=== PATIENT | male | born 1950 | race Caucasian/White ===

== ENCOUNTER 2023-05-16 16:35 | Inpatient (IN) | payer OTHER, MEDICARE, SELFPAY ==
--- NOTE | ~2023-05-16 | CT_ITS ---
EXAMINATION: CT ABDOMEN AND PELVIS WITH CONTRAST CLINICAL INFORMATION: Pain COMPARISON: None available. TECHNIQUE: Multidetector volumetric images were obtained from the superior aspect of the liver through the pubic symphysis following administration 85 mL of Omnipaque 350 intravenous contrast. Sagittal and coronal reformatted images were obtained on the technologist's workstation. Oral contrast: Yes This CT examination was performed using dose optimization techniques as appropriate, variously including the following: *Automated exposure control *Adjustment of mA and/or kV according to patient size (this includes techniques or standardized protocols for targeted exams where dose is matched to indication/reason for exam; i.e. extremities or head) *Use of iterative reconstruction technique DLP: 683 mGy-cm FINDINGS: LUNG BASES: The visualized lung bases are unremarkable. LIVER, GALLBLADDER, AND BILIARY TREE: The liver is low and heterogeneous in attenuation suggestive of fatty infiltration with areas of focal fatty sparing. There is a large 2 x 3 cm gallstone in the gallbladder. Gallbladder wall appears normal. The bile ducts are normal in caliber. PANCREAS: There is fat stranding surrounding the pancreas and small amount of fluid suggestive of acute pancreatitis. SPLEEN: Unremarkable. ADRENAL GLANDS: Unremarkable. KIDNEYS AND URETERS: The kidneys are normal in size, shape, and attenuation. No hydronephrosis, hydroureter, or calculi seen. No perinephric stranding. BLADDER: Unremarkable. GASTROINTESTINAL TRACT: There is a fat stranding adjacent to the distal left colon or proximal sigmoid colon. No adjacent wall thickening is seen. Findings are questionable fat necrosis or epiploic appendicitis read The small and large bowel are otherwise unremarkable. The appendix is unremarkable. ABDOMINAL WALL: Small umbilical hernia containing fat. Small left inguinal hernia containing fat and knuckle of left colon. No evidence of obstruction. Low-attenuation soft tissue with central calcification high in the right inguinal canal. This measures 2 x 2.5 cm. Uncertain etiology. Correlation with physical exam to exclude undescended testicle recommended. LYMPH NODES: Normal. VASCULAR: Severe atherosclerotic disease. No PELVIC VISCERA: Unremarkable. OSSEOUS STRUCTURES: Unremarkable. CT/CT abdomen pelvis w IV con IMPRESSION: Large 2 x 3 cm gallstone. Fatty liver. Fat stranding and fluid surrounding the pancreas suggestive of acute pancreatitis. Question epiploic appendagitis vs fat necrosis adjacent to the distal left colon. No evidence of active colitis or diverticulitis. Partially calcified low-attenuation soft tissue mass high in the right inguinal canal. Clinically correlate to exclude undescended testicle. Small left inguinal hernia containing fat and knuckle of left colon. No evidence of obstruction. Fleischner guidelines were followed.
--- NOTE | ~2023-05-16 | CT_ITS ---
EXAMINATION: CT ABDOMEN AND PELVIS WITH CONTRAST CLINICAL INFORMATION: Worsening epigastric pain. Pancreatitis. COMPARISON: 05/16/2023. TECHNIQUE: Multidetector volumetric images were obtained from the superior aspect of the liver through the pubic symphysis following administration 85 mL of Omnipaque 350 intravenous contrast. Sagittal and coronal reformatted images were obtained on the technologist's workstation. Oral contrast: No This CT examination was performed using dose optimization techniques as appropriate, variously including the following: *Automated exposure control *Adjustment of mA and/or kV according to patient size (this includes techniques or standardized protocols for targeted exams where dose is matched to indication/reason for exam; i.e. extremities or head) *Use of iterative reconstruction technique DLP: 665 mGy-cm FINDINGS: LUNG BASES: Right basilar fibrotic streaks and/or atelectasis. No pleural effusion. Are normal in size. No pericardial effusion. Coronary arterial calcification. LIVER, GALLBLADDER, AND BILIARY TREE: Suspect mild fatty infiltration of the liver. The liver appears unremarkable in size and shape. No focal hepatic lesion or biliary ductal dilatation is appreciated. 3.2 cm gallstone. No evidence of gallbladder wall thickening or pericholecystic inflammatory change. PANCREAS: Induration of peripancreatic fat, similar compared with 4 days prior. Homogeneous enhancement of the pancreatic parenchyma. No collection identified. SPLEEN: Unremarkable ADRENAL GLANDS: Unremarkable KIDNEYS AND URETERS: The kidneys appear unremarkable in size, shape, and attenuation. No hydronephrosis, hydroureter, or calculi seen. BLADDER: Unremarkable GASTROINTESTINAL TRACT: The small and large bowel appear unremarkable. No diverticulosis. Normal-appearing distal ileum and vermiform appendix. ABDOMINAL WALL: No significant radiographic change in Low-attenuation soft tissue with central calcification high in the right inguinal canal... [measuring] 2 x 2.[address] scan from 4 days prior. Small left inguinal hernia containing fat. LYMPH NODES: No evidence of adenopathy by size criteria. VASCULAR: Aortoiliac atherosclerosis. PELVIC VISCERA: Unremarkable OSSEOUS STRUCTURES: Unremarkable CT/CT abdomen pelvis w IV con IMPRESSION: Acute pancreatitis. No significant radiographic change compared with 4 days prior, as above.
--- NOTE | ~2023-05-16 | US_ITS ---
EXAMINATION: US ABDOMEN LIMITED CLINICAL INFORMATION: Right upper quadrant pain. COMPARISON: CT from the same day TECHNIQUE: Real-time imaging of the right upper quadrant abdominal viscera. Exam is limited due to bowel gas FINDINGS: PANCREAS: Not seen LIVER: Liver echotexture is increased. No focal hepatic lesion. There is no intrahepatic biliary duct dilatation seen. GALLBLADDER: There is a large gallstone in the gallbladder measuring 2.2 cm. Gallbladder wall does not appear thickened. There is no pericholecystic fluid. COMMON BILE DUCT: Normal in caliber measuring 0.4 cm in diameter. RIGHT KIDNEY: Normal. No hydronephrosis. No renal calculi or focal parenchymal lesions. The kidney measures 11.6 cm in maximum dimension. FREE FLUID: None. US/US abdomen limited IMPRESSION: Limited exam. Large gallstone in the gallbladder. Echogenic liver probably representing fatty infiltration.
--- NOTE | ~2023-05-16 | XR_ITS ---
EXAMINATION: XR FOOT, LEFT CLINICAL INFORMATION: Left heel pain, no trauma COMPARISON: None available. TECHNIQUE: AP, lateral, and oblique portable views of the left foot. FINDINGS: The bones are intact. No fracture. Alignment is anatomic. Joint spaces are maintained. Small posterior plantar calcaneal spur is seen. XR/XR foot LT 2V IMPRESSION: Small posterior plantar calcaneal spur.
--- NOTE | ~2023-05-16 | MR_ITS ---
EXAMINATION: MR ABDOMEN WITHOUT CONTRAST CLINICAL INFORMATION: Gallstone pancreatitis, possible CBD stone COMPARISON: Abdominal ultrasound and CT abdomen pelvis performed 05/16/2023 TECHNIQUE: MR abdomen is performed without gadolinium contrast. Heavily T2-weighted noncontrast MRCP sequences were obtained. FINDINGS: Technically limited exam with portions of the abdomen excluded from the [id number] on multiple sequences and wraparound artifact limiting assessment. LUNG BASES: Unremarkable. ABDOMINAL AND PELVIC WALL: Unremarkable. LIVER AND BILIARY TREE: No intra or extrahepatic biliary duct dilatation or intraluminal defect to suggest choledocholithiasis. Mild loss of signal on opposed imaging suggesting hepatic steatosis. GALLBLADDER: Cholelithiasis without evidence of acute cholecystitis. PANCREAS: Peripancreatic free fluid and inflammatory fat stranding compatible with history of acute pancreatitis. Lack of intravenous contrast limits evaluation for pancreatic enhancement. SPLEEN: Unremarkable. ADRENAL GLANDS: Unremarkable. KIDNEYS AND URETERS: Unremarkable. GASTROINTESTINAL TRACT: Unremarkable. VASCULAR: Unremarkable. LYMPH NODES/PERITONEUM: No lymphadenopathy. FREE FLUID: None. OSSEOUS STRUCTURES: Unremarkable. MR/MR MRCP IMPRESSION: 1. No intra or extrahepatic biliary duct dilatation or intraluminal defect to suggest choledocholithiasis. 2. Cholelithiasis without evidence of acute cholecystitis. 3. Peripancreatic free fluid and inflammatory fat stranding compatible with history of acute pancreatitis, better evaluated on prior postcontrast CT. Lack of intravenous contrast limits evaluation for pancreatic enhancement. 4. Mild hepatic steatosis.
[2023-05-16 16:44] VITALS: BP 183/104; PULSE 80; O2SAT 100; BMI 32.0
[2023-05-16 16:47] VITALS: BP 175/93; PULSE 73; RESP 18; TEMP 36.9; O2SAT 100
--- NOTE | 2023-05-16 17:00 | PC.NURSE ---
a&ox3, vss aside from being hypertensive at this time. pt comes in today d/t 6/10 epigastric pain. sx began this afternoon when pt was working on computer from home. pt states that burning sensation began out of nowhere. pt also c/o n/v denies diarrhea. pt c/o no sob/urinary sx. pt states pain level has decreased some since ems transportation. 20gIV placed in left hand by EMS. no medications given en route. pt currently resting in no apparent distress w/ bedside. respirations even and unlabored. call tian placed within reach.
--- NOTE | 2023-05-16 17:24 | ECG_ITS ---
Test Reason : ABD PAIN Blood Pressure : / mmHG Vent. Rate : 069 BPM Atrial Rate : 069 BPM P-R Int : 166 ms QRS Dur : 090 ms QT Int : 384 ms P-R-T Axes : 012 -21 -11 degrees QTc Int : 411 ms Normal sinus rhythm Inferior infarct , age undetermined Abnormal ECG No previous ECGs available Referred By: Kiel Diaz Electronically Signed By:MONSE OBANDO MD
--- NOTE | 2023-05-16 17:30 | ED_ITS ---
HPI - General Adult General Chief complaint: Abdominal Pain Stated complaint: ABD PAIN XFEW HRS Time Seen by Provider: 05/16/23 16:44 Source: patient, family and RN notes reviewed Mode of arrival: EMS Limitations: no limitations History of Present Illness HPI narrative: 73 year old male with no PMH presents for chest pain beginning this morning. He states the pain began shortly after taking vitamins and is described as burning like a hot coal on my chest. He reports taking Pepto bismol and the pain subsided for a couple of hours before returning. He states the pain was severe and resulted in him calling EMS. He denies shortness of breath, vomiting, syncope, radiation of pain to the back or arms. He denies a cardiac history. He reports his mother of a [place] in her 50s and there is a familial history of gallbladder disease. Patient denies having these symptoms before. Related Data Home Medications Medication Instructions Recorded Confirmed Mushroom Complex 1 tab PO DAILY 05/16/23 05/16/23 [place] 3 1 cap PO DAILY 05/16/23 05/16/23 ascorbic acid (vitamin C) 500 mg 500 mg PO DAILY 05/16/23 05/16/23 tablet biotin 1 tab PO DAILY 05/16/23 05/16/23 cholecalciferol (vitamin D3) 25 25 mcg PO DAILY 05/16/23 05/16/23 mcg (1,000 unit) tablet chromium 1 tab PO DAILY 05/16/23 05/16/23 coenzyme Q10 400 mg capsule (Co 400 mg PO DAILY 05/16/23 05/16/23 Q-10) multivitamin 1 tab PO DAILY 05/16/23 05/16/23 psyllium seed (sugar) oral powder 1 tbsp PO DAILY 05/16/23 05/16/23 vitamin B complex 1 tab PO DAILY 05/16/23 05/16/23 Allergies Allergy/AdvReac Type Severity Reaction Status Date / Time No Known Allergies Allergy Verified 05/16/23 16:44 Review of Systems 2 Constitutional: Constitutional: Denies chills, Denies fever(s) and Denies headache(s) ENT: Denies headache(s) Cardiovascular: Cardiovascular: Reports chest pain, Reports Epigastric Pain, Denies syncope, Denies lightheadedness, Denies radiating jaw, neck or arm pain, Denies palpitations and Denies dyspnea Respiratory: Respiratory: Denies cough and Denies dyspnea Gastrointestinal: Gastrointestinal: Reports abdominal pain, Denies diarrhea, Denies nausea and Denies vomiting Genitourinary: Genitourinary: Denies dysuria and Denies urinary urgency Neurologic: Denies syncope and Denies headache(s) Endocrine: Endocrine: Denies palpitations [facility] Social History Social History Alcohol intake: never Smoked in Last 30 Days: No Use of substances other than those prescribed or required for medical reasons: No Advance Directives: Yes Advance Directives Information Provided: No Advance Directives on File: No Physical Exam ED Vital Signs: Vital Signs - 24 hr 05/16/23 16:47 05/16/23 18:00 Temperature 98.5 F 98.7 F Pulse Rate 73 71 Respiratory Rate 18 16 Blood Pressure 175/93 H 154/76 H Pulse Oximetry 100 98 Oxygen Delivery Method Room Air Room Air BMI result Body Mass Index 32.0 Const General: healthy appearing and no acute distress Orientation/consciousness: patient oriented x3 Limitations: no limitations HENMT Head: Yes normocephalic and Yes atraumatic Eyes Conjunctivae: conjunctivae normal Sclerae: sclerae normal Corneas: corneas normal Chest Chest palpation & inspection: normal inspection of the chest and normal palpation of entire chest wall Resp Effort & Inspection: normal respiratory effort Auscultation: clear to auscultation bilaterally Cardio Rate: regular rate Rhythm: regular rhythm GI Inspection: Yes distended Palpation (GI): Soft to palpation, not firm, Tenderness to palpation present (GI) in the epigastrum and with rebound tenderness; not in the RUQ, Guarding due to palpation present (GI) other (epigastric) and not rigid Skin General skin exam: no rashes or lesions noted Neuro General: patient oriented x3 Course Reevaluation(s) Reevaluation #1: Patient's lipase noted to be elevated to over 3000. This is consistent the patient's presentation of epigastric abdominal pain. The patient's T bili is also elevated 2.1. States gallstone pancreatitis most likely diagnosis. I ordered an ultrasound to evaluate for gallstones/cholecystitis. Iritis CT scan of the abdomen pelvis to evaluate the pancreas and rule out pseudocyst versus abscess is the patient has never had pancreatitis before. The patient does endorse occasionally drinking and wine approximately 3 times per week. He reports not having had a drink since Sunday, 2 days ago. Time: 18:52 Reevaluation #2: Discussed with general surgery, Dr. Emanuel who will admit the patient to his service Time: 20:38 Medications Administered Discontinued Medications Generic Name Dose Route Start Last Admin Trade Name Carin PRN Reason Stop Dose Admin Al Hydroxide/Mg Hydroxide 30 ml 05/16/23 17:38 05/16/23 17:58 Magnesium Hydrox/Alum Hydrox 30 Ml Oral.Susp PO 05/16/23 17:39 30 ml ONCE ONE Administration Sodium Chloride 1,000 mls @ 999 mls/hr 05/16/23 19:00 05/16/23 20:17 Ns IV 05/16/23 20:00 Infused .Q1H1M BARBARA Infusion Iohexol 100 ml 05/16/23 19:02 05/16/23 19:02 Iohexol 350 Mg/Ml 100 Ml Infus..Btl IV 05/16/23 19:03 85 ml ONCE ONE Administration Lidocaine HCl 15 ml 05/16/23 17:38 05/16/23 17:58 Lidocaine Hcl Viscous 2 % 15 Ml Solution MUCOUS MEM 05/16/23 17:39 15 ml ONCE ONE Administration Morphine Sulfate 4 mg 05/16/23 18:50 05/16/23 19:05 Morphine Sulfate 4 Mg/Ml Cartridge IVPUSH 05/16/23 18:51 4 mg ONCE ONE Administration Protocol Ondansetron HCl 4 mg 05/16/23 17:38 05/16/23 17:58 Ondansetron Odt 4 Mg Tab.Rapdis TRANSLINGU 05/16/23 17:39 4 mg ONCE ONE Administration Ondansetron HCl 4 mg 05/16/23 18:50 05/16/23 19:05 Ondansetron Hcl 4 Mg/2 Ml Vial IVPUSH 05/16/23 18:51 4 mg ONCE ONE Administration Medical Decision Making Medical Decision Making MDM Narrative: 73-year-old male who denies any past medical history presents for evaluation of epigastric abdominal pain as well as chest pain. He is noted to be hypertensive at 175/93. Plan to start with EKG, labs. Will treat with GI cocktail to see if that resolves his pain. The patient is nontender the right upper quadrant, so it is felt to be less likely biliary colic or biliary disease. Further workup will be dictated by EKG and lab results. Differential Diagnosis Differential Diagnoses: The differential diagnosis associated with the presentation includes peptic ulcer disease GERD ACS cholecystitis aortic dissection pancreatitis Admission/Observation Consideration of admission/observation: Escalation of care including admission/observation considered Consult Healthcare Provider Management of the patient was discussed with: Neonatal Intensive Care Nurse (General surgery who will admit the patient) Lab Data MDM Lab Attestation statement: I reviewed the patient's lab results. (No leukocytosis, no anemia, normal platelet count. No significant electrolyte abnormalities. Normal renal function.) Patient's T bili is elevated to 2.1, AST and ALT are slightly elevated to 141 and 168 respectively. Of note, the patient's lipase is greater than 3000. 05/16/23 17:59 05/16/23 17:59 Labs: Lab Results 05/16/23 05/16/23 Range/Units 17:59 18:18 WBC 9.0 (4.8-10.8) X10*3/uL RBC 5.12 (4.60-5.80) X10*6/uL Hgb 16.5 (14.0-18.0) g/dl Hct 47.3 (42.0-52.0) % MCV 92.4 (80.0-98.0) fL MCH 32.2 (27.0-33.0) pg MCHC 34.9 (31.0-36.0) g/dl RDW 12.2 (11.0-16.0) % Plt Count 186 (160-400) X10*3/uL MPV 9.9 (9.4-12.4) fL Immature Gran % (Auto) 0.3 (0.0-0.4) % Neut % (Auto) 80.5 H (45-73) % Lymph % (Auto) 11.8 L (20-40) % [place] % (Auto) 6.6 (2-11) % Eos % (Auto) 0.4 (0-4) % Baso % (Auto) 0.4 (0-2) % Lymph # (Auto) 1.1 L (1.2-4.9) X10*3/uL [place] # (Auto) 0.6 (0.1-1.2) X10*3/uL Eos # (Auto) 0.0 (0.0-0.4) X10*3/uL Baso # (Auto) 0.0 (0.0-0.2) X10*3/uL Abs Immat Gran (auto) 0.03 (0.00-0.03) X10*3/uL Absolute Neuts (auto) 7.2 (2.0-8.3) x10*3/uL Absolute Nucleated RBC 0.000 (0.0-0.012) X10*3/uL Nucleated RBC % (auto) 0.0 (0.0-0.2) /100WBC PT 11.9 (11.1-13.3) SEC INR 1.0 (0.9-1.1) APTT 29.8 (26.0-36.4) SEC Sodium 141 (135-145) mmol/L Potassium 4.3 (3.3-5.1) mmol/L Chloride 109 H (96-108) mmol/L Carbon Dioxide 27 (22-29) mmol/L Anion Gap 9 L (12-20) BUN 14 (9-16) mg/dL Creatinine 0.86 (0.5-1.4) mg/dL Estim Creat Clear Calc 82.6 Estimated GFR > 60 Random Glucose 108 (60-115) mg/dL Calcium 9.5 (8.4-10.2) mg/dL Total Bilirubin 2.1 H (0.0-1.0) mg/dL AST 141 H (5-37) U/L ALT 168 H (0-40) U/L Alkaline Phosphatase 60 (39-117) U/L Troponin I High Sens < 2.7 (<3.5-35.0) ng/L Total Protein 7.0 (6.5-8.0) g/dL Albumin 4.1 (3.5-5.0) g/dL Lipase > 3000 H (8-78) U/L Urine Color Yellow Urine Appearance Clear Urine pH 6.5 (5.0-9.0) Ur Specific [place] <= 1.005 (1.005-1.025) Urine Protein Negative (Neg-Trace) mg/dL Urine Glucose (UA) Negative (Negative) mg/dL Urine Ketones Negative (Negative) mg/dL Urine Blood Negative (Negative) Urine Nitrite Negative (Negative) Ur Leukocyte Esterase Negative (Negative) Discharge Plan Discharge Clinical Impression: Acute gallstone pancreatitis Patient Disposition: Admitted As Inpatient
[2023-05-16] MEDS: Ondansetron ODT 4 MG TAB.RAPDIS TRANSLINGU (17:58)
[2023-05-16] MEDS: Lidocaine HCl Viscous 2 % 15 ML SOLUTION MUCOUS MEM (17:58)
[2023-05-16] MEDS: Magnesium Hydrox/Alum Hydrox 30 ML ORAL.SUSP PO (17:58)
[2023-05-16 18:00] VITALS: BP 154/76; PULSE 71; RESP 16; TEMP 37.1; O2SAT 98
--- NOTE | 2023-05-16 18:00 | PC.NURSE ---
vss and up to date at this time. pt verbalizing pain has decreased to a 4/10 at this time. medication administered per provider order. tech bedside obtaining labs. bedside. respirations remain even and unlabored. call tian placed within reach.
--- NOTE | 2023-05-16 18:02 | MHC.EDTECH ---
This pct just assumed care of pt ,vitals taken ,blood drawn and sent to lab ,ekg taken and was read by Provider Sonu .
[2023-05-16 18:04] LABS: MANUAL DIFF FLAG NO
[2023-05-16 18:10] LABS: Basophils Percent Auto 0.4 % (0-2); Eosinophils Percent Auto 0.4 % (0-4); Hematocrit 47.3 % (42.0-52.0); Hemoglobin 16.5 g/dl (14.0-18.0); Imm Gran Abs Auto 0.03 X10*3/uL (0.00-0.03); Imm Gran Pct Auto 0.3 % (0.0-0.4); Lymphocytes Absolute Auto 1.1 X10*3/uL (1.2-4.9); Lymphocytes Percent Auto 11.8 % (20-40); Mean Corpuscular HGB Conc 34.9 g/dl (31.0-36.0); Mean Corpuscular Hemoglobin 32.2 pg (27.0-33.0); Mean Corpuscular Volume 92.4 fL (80.0-98.0); Mean Platelet Volume 9.9 fL (9.4-12.4); Monocytes Absolute Auto 0.6 X10*3/uL (0.1-1.2); Monocytes Percent Auto 6.6 % (2-11); Neutrophils Absolute Auto 7.2 x10*3/uL (2.0-8.3); Neutrophils Percent Auto 80.5 % (45-73); Platelet Count 186 X10*3/uL (160-400); Red Blood Count 5.12 X10*6/uL (4.60-5.80); Red Cell Distribution Width 12.2 % (11.0-16.0)
[2023-05-16 18:15] LABS: Prothrombin Time 11.9 SEC (11.1-13.3)
[2023-05-16 18:18] LABS: Partial Thromboplastin Time 29.8 SEC (26.0-36.4)
--- NOTE | 2023-05-16 18:20 | PC.NURSE ---
urine obtained and sent to lab by [email or web address].
[2023-05-16 18:23] LABS: Alanine Aminotransferase 168 U/L (0-40); Albumin Level 4.1 g/dL (3.5-5.0); Alkaline Phosphatase 60 U/L (39-117); Anion Gap 9 (12-20); Aspartate Amino Transferase 141 U/L (5-37); Bilirubin Total 2.1 mg/dL (0.0-1.0); Blood Urea Nitrogen 14 mg/dL (9-16); Calcium 9.5 mg/dL (8.4-10.2); Carbon Dioxide 27 mmol/L (22-29); Chloride 109 mmol/L (96-108); Creatinine Clr Calc Pharmacy 82.6; Estimated Glomerular Filt Rate > 60; Glucose Random 108 mg/dL (60-115); Potassium 4.3 mmol/L (3.3-5.1); Sodium 141 mmol/L (135-145)
[2023-05-16 18:28] LABS: Appearance Urine Clear; Color Urine Yellow; Glucose Urine UA Negative (Negative); Leukocyte Esterase Urine Negative (Negative); Nitrite Urine Negative (Negative); PH 6.5 (5.0-9.0); Specific Gravity - Urine <= 1.005 (1.005-1.025); Urine Blood Negative (Negative); Urine Ketones Negative (Negative); Urine Protein Negative (Neg-Trace)
[2023-05-16 18:30] LABS: Troponin-I High Sensitivity < 2.7 ng/L (<3.5-35.0)
[2023-05-16 18:34] LABS: Lipase > 3000 U/L (8-78)
--- NOTE | 2023-05-16 18:52 | MHC.EDTECH ---
THIS TECH TOOK OVER [employer] DOWEL [employer]KER AT 1900
[2023-05-16] MEDS: iohexoL 350 MG/ML 100 ML INFUS..BTL IV (19:02)
[2023-05-16] MEDS: Morphine Sulfate 4 MG/ML CARTRIDGE IVPUSH (19:05)
[2023-05-16] MEDS: 0.9 % Sodium Chloride 1,000 ML 999 ML IV (19:05)
[2023-05-16] MEDS: ondansetron HCL 4 MG/2 ML VIAL IVPUSH (19:05)
--- NOTE | 2023-05-16 20:10 | PHA.MEDREC ---
Pharmacy Consult ? Medication Reconciliation Pharmacy has completed the medication reconciliation. Patient takes only OTC supplements. Cecilia Johnston, EliasD
[2023-05-16] MEDS: Acetaminophen 1,000 MG/100 ML PIGGYBACK 400 MG IV (20:54)
[2023-05-16 20:57] VITALS: BP 166/86; PULSE 77; RESP 18; TEMP 36.9; O2SAT 95
[2023-05-16] MEDS: HYDROmorphone HCl 0.5 MG/0.5 ML SYRINGE IVPUSH (22:15)
[2023-05-16] MEDS: Lactated Ringers 1,000 ML 125 ML IVCONT (23:23)
[2023-05-17] VITALS (7 sets, daily range): BP systolic 146–175; BP diastolic 77–88; PULSE 72–83; RESP 16–18; TEMP 36.7–37.3; O2SAT 92–95; BMI 32.0
[2023-05-17] MEDS: HYDROmorphone HCl 0.5 MG/0.5 ML SYRINGE IVPUSH ×5 (03:40→22:50)
[2023-05-17] MEDS: Acetaminophen 1,000 MG/100 ML PIGGYBACK 400 MG IV ×2 (03:44→09:22)
[2023-05-17 06:01] LABS: MANUAL DIFF FLAG NO
[2023-05-17 06:16] LABS: Basophils Percent Auto 0.4 % (0-2); Eosinophils Absolute Auto 0.1 X10*3/uL (0.0-0.4); Eosinophils Percent Auto 0.6 % (0-4); Hematocrit 44.1 % (42.0-52.0); Hemoglobin 15.2 g/dl (14.0-18.0); Imm Gran Abs Auto 0.02 X10*3/uL (0.00-0.03); Imm Gran Pct Auto 0.3 % (0.0-0.4); Lymphocytes Absolute Auto 1.2 X10*3/uL (1.2-4.9); Mean Corpuscular HGB Conc 34.5 g/dl (31.0-36.0); Mean Corpuscular Hemoglobin 32.3 pg (27.0-33.0); Mean Corpuscular Volume 93.8 fL (80.0-98.0); Mean Platelet Volume 10.3 fL (9.4-12.4); Monocytes Absolute Auto 0.6 X10*3/uL (0.1-1.2); Monocytes Percent Auto 7.5 % (2-11); Neutrophils Absolute Auto 5.9 x10*3/uL (2.0-8.3); Neutrophils Percent Auto 76.2 % (45-73); Platelet Count 181 X10*3/uL (160-400); Red Cell Distribution Width 12.3 % (11.0-16.0); White Blood Count 7.8 X10*3/uL (4.8-10.8)
[2023-05-17 06:28] LABS: Alanine Aminotransferase 256 U/L (0-40); Albumin Level 3.6 g/dL (3.5-5.0); Alkaline Phosphatase 63 U/L (39-117); Anion Gap 11 (12-20); Aspartate Amino Transferase 190 U/L (5-37); Bilirubin Direct 2.4 mg/dL (0.0-0.5); Bilirubin Total 3.6 mg/dL (0.0-1.0); Blood Urea Nitrogen 10 mg/dL (9-16); Calcium 8.6 mg/dL (8.4-10.2); Carbon Dioxide 24 mmol/L (22-29); Chloride 110 mmol/L (96-108); Creatinine Clr Calc Pharmacy 93.5; Estimated Glomerular Filt Rate > 60; Glucose Random 100 mg/dL (60-115); Potassium 3.6 mmol/L (3.3-5.1); Sodium 141 mmol/L (135-145); Total Protein 6.1 g/dL (6.5-8.0)
[2023-05-17 06:45] LABS: Lipase 1428 U/L (8-78)
--- NOTE | 2023-05-17 07:33 | PC.NURSE ---
MRI screening form completed and axed to MRI
--- NOTE | 2023-05-17 07:48 | PM.HPGS ---
History of Present Illness History of Present Illness Date of Service: 05/17/23 Chief complaint: ABD PAIN XFEW HRS Narrative: Pb Ferguson is a 73 year old male Presenting with complaints of abdominal pain in the epigastrium. The pain began initially around 12:00 but gradually decreased in severity until approximately 15:00 but became very severe. The pain was mainly felt in the epigastrium with a small amount of pain into the back. He denies any previous history of similar pain although he has had some back pain associated with packing boxes. When the pain became so severe he presented to the emergency department for further evaluation. Patient was noted to be tender in the epigastrium but no tenderness in the right upper quadrant. Workup revealed an elevated lipase of [address] abdomen and pelvis revealed a large gallstone within the gallbladder with evidence of pancreatitis. Ultrasound also confirmed gallstones within the gallbladder with no secondary evidence of acute cholecystitis. A normal appearing common bile duct was noted. Overnight patient reports slight decrease in abdominal pain but still with this sharp epigastric location. Repeat laboratories revealed decrease in the lipase level however and bilirubin to have increased. He denies heavy alcohol use and reports only social alcohol. He has a recent history of 25 lb of weight gain but is unaware of any hyperlipidemia. Review of Systems Review of Systems: Yes all other systems are reviewed and are negative Constitutional: Constitutional: Reports anorexia, Denies chills and Denies fever(s) Cardiovascular: Cardiovascular: Reports chest pain, Reports Epigastric Pain, Denies irregular heart rhythm and Denies leg edema Respiratory: Respiratory: Denies chest congestion, Denies cough, Denies hemoptysis and Denies wheezing Gastrointestinal: Gastrointestinal: Reports abdominal pain, Reports bloating, Reports heartburn, Denies diarrhea, Denies nausea and Denies vomiting Musculoskeletal: Musculoskeletal: Reports back pain and Reports myalgias Allergic/Immunologic: Allergic/Immunologic: Denies wheezing PMFSH Family History Family History Brother Pancreatic cancer Social History Social History Alcohol intake: current Alcohol intake frequency: holidays/special occasions only Patient Tobacco Use Status: Never used Tobacco Meds Allergies Allergy/AdvReac Type Severity Reaction Status Date / Time No Known Allergies Allergy Verified 05/16/23 16:44 Active Medications: Current Medications Hydromorphone HCl (Hydromorphone Hcl 0.5 Mg/0.5 Ml Syringe) 0.5 mg IVPUSH Q3H PRN; Protocol PRN Reason: Pain, Severe (Pain Scale 7-10) Last Admin: 05/17/23 03:40 Dose: 0.5 mg Acetaminophen (Ofirmev) 1,000 mg in 100 mls @ 400 mls/hr IV Q6H [facility] Stop: 05/17/23 14:44 Last Infusion: 05/17/23 04:00 Dose: Infused Lactated Ringer's (Lr) 1,000 mls @ 125 mls/hr IVCONT .Q8H [facility] Last Admin: 05/16/23 23:23 Dose: 125 mls/hr Ondansetron HCl (Ondansetron Hcl 4 Mg/2 Ml Vial) 4 mg IVPUSH QID PRN PRN Reason: Nausea Sodium Chloride (0.9 % Sodium Chloride Flush 3 Ml Syringe) 3 ml IVFLUSH QSHIFT [facility] Last Admin: 05/17/23 03:14 Dose: Not Given Zolpidem Tartrate (Zolpidem Tartrate 5 Mg Tablet) 5 mg PO BEDTIME PRN PRN Reason: Insomnia Home Medications Medication Instructions Recorded Confirmed Last Taken Type Mushroom Complex 1 tab PO DAILY 05/16/23 05/16/23 Unknown History [place] 3 1 cap PO DAILY 05/16/23 05/16/23 05/16/23 History ascorbic acid (vitamin C) 500 mg 500 mg PO DAILY 05/16/23 05/16/23 05/16/23 History tablet biotin 1 tab PO DAILY 05/16/23 05/16/23 Unknown History cholecalciferol (vitamin D3) 25 25 mcg PO DAILY 05/16/23 05/16/23 Unknown History mcg (1,000 unit) tablet chromium 1 tab PO DAILY 05/16/23 05/16/23 Unknown History coenzyme Q10 400 mg capsule (Co 400 mg PO DAILY 05/16/23 05/16/23 Unknown History Q-10) multivitamin 1 tab PO DAILY 05/16/23 05/16/23 Unknown History psyllium seed (sugar) oral powder 1 tbsp PO DAILY 05/16/23 05/16/23 Unknown History vitamin B complex 1 tab PO DAILY 05/16/23 05/16/23 05/16/23 History Physical Exam Vital Signs: Vital Signs: Last Vital Signs Temp 98.3 F 05/17/23 06:57 Pulse 72 05/17/23 06:57 Resp 16 05/17/23 06:57 BP 167/88 H 05/17/23 06:57 Pulse Ox 92 05/17/23 06:57 O2 Del Method Room Air 05/17/23 06:57 BMI result Body Mass Index 32.0 Const: General: no acute distress and well groomed Nutritional Appearance: average body habitus Orientation/consciousness: patient oriented x3 Limitations: no limitations HEENT: Head: Yes normocephalic and Yes atraumatic Ears: hearing grossly normal bilaterally Eyes: Sclerae: sclerae normal Resp: Effort & Inspection: normal respiratory effort, no audible wheezes, no cough and respiratory distress Auscultation: clear to auscultation bilaterally GI: Inspection: Yes normal to inspection Palpation (GI): Soft to palpation, Tenderness to palpation present (GI) in the epigastrum; not in the RUQ, no guarding, not rigid and no hepatosplenomegaly Percussion: Yes normal to percussion Auscultation: normal bowel sounds Skin: General skin exam: no rashes or lesions noted and dry skin Neuro: General: patient oriented x3 Extrem: General: Yes no clubbing, cyanosis or edema Results Results Labs: Short CBC 05/16/23 05/17/23 Range/Units 17:59 04:29 WBC 9.0 7.8 (4.8-10.8) X10*3/uL Hgb 16.5 15.2 (14.0-18.0) g/dl Hct 47.3 44.1 (42.0-52.0) % Plt Count 186 181 (160-400) X10*3/uL BMP 05/16/23 05/17/23 17:59 04:29 Sodium 141 141 Potassium 4.3 3.6 Chloride 109 H 110 H Carbon Dioxide 27 24 BUN 14 10 Creatinine 0.86 0.76 Calcium 9.5 8.6 D Liver Function 05/16/23 05/17/23 Range/Units 17:59 04:29 Total Bilirubin 2.1 H 3.6 H (0.0-1.0) mg/dL Direct Bilirubin 2.4 H (0.0-0.5) mg/dL AST 141 H 190 H (5-37) U/L ALT 168 H 256 H (0-40) U/L Alkaline Phosphatase 60 63 (39-117) U/L Albumin 4.1 3.6 (3.5-5.0) g/dL Urine 05/16/23 Range/Units 18:18 Urine Color Yellow Urine Appearance Clear Urine pH 6.5 (5.0-9.0) Ur Specific [place] <= 1.005 (1.005-1.025) Urine Protein Negative (Neg-Trace) mg/dL Urine Glucose (UA) Negative (Negative) mg/dL Abdomen CT scan report/results: image reviewed CT scan - pelvis: image reviewed Assessment and Plan (1) Acute gallstone pancreatitis: Status: Acute (2) Abnormal transaminases: Status: Acute Plan 73-year-old male patient presenting with acute onset of epigastric abdominal pain found to have evidence of pancreatitis at a large gallstone within the gallbladder. Bilirubin and transaminase levels are elevated this morning however the lipase has improved. Patient does not have an alcoholic history to explain pancreatitis. Findings suggestive of gallstone pancreatitis. Will obtain MRCP to evaluate the pancreas and common bile duct. A gastroenterology consultation was requested as well. Total time managing care of this patient today: 45 minutes. Quality Stroke Does the patient have a stroke diagnosis?: No VTE Prior VTE?: No VTE Risk Level:: Surgical - moderate VTE Device Contraindication: N/A - Device Ordered VTE Drug Contraindication: Treatment Not Indicated Procedures Date of Service Date of Service: 05/17/23
[2023-05-17] MEDS: Lactated Ringers 1,000 ML 125 ML IVCONT ×3 (09:21→22:53)
[2023-05-17] MEDS: 0.9 % Sodium Chloride Flush 3 ML SYRINGE IVFLUSH ×2 (09:23→15:56)
--- NOTE | 2023-05-17 09:33 | PC.NURSE ---
This production underwriter reached out to surgery in regards to patients pain control. IV APAP not working for patient, questioned d/c of order/ change of PRN medication. Per provider, last dose of APAP already running, d/c after dose currently finishes. Awaiting MRI at this time
--- NOTE | 2023-05-17 09:48 | MHC.CM.PN ---
Attempted to meet with patient in regards to discharge planning. Patient is currently sleeping. No family present. Will attempt to meet again. Continue to monitor for d/c needs.
--- NOTE | 2023-05-17 14:16 | PC.NURSE ---
attempted to call report, nurse unable to get report at this time will call back
[2023-05-17] MEDS: ondansetron HCL 4 MG/2 ML VIAL IVPUSH (14:43)
--- NOTE | 2023-05-17 16:05 | PM.EVENT ---
Event Note Date of Service: 05/17/23 Event Note: GI Consult-Full note dictated. History via patient, , and EMR. Imp: Cholelithiasis and Gallstone Pancreatitis. Clinically stable although still having abdominal pain. His LFT's did increase but the MRCP revealed normal appearing bile ducts without any evidence of a CBD stone nor obstruction. The pancreas is c/w pancreatitis as seen on the CT scan. It appears that he has passed a CBD stone. I suspect the elevated LFT's are due to edema in the head of the pancreas with some component of biliary obstruction on that basis. Rec: Continued supportive care. F/U labs in AM. I do not think he requires an ERCP preoperatively at this time. Eventual CCY as per Dr. Emanuel once the pancreatitis resolves. Please advise me if the LFT's continue to rise and he can be reassessed for an ERCP at that time. D/W patient and his in detail. They are comfortable with this plan. Thanks. Time Spent With Patient Time: Total time managing care of this patient today ____ minutes.
--- NOTE | 2023-05-17 16:19 | PC.NURSE ---
Patient flagged as moderate fall risk due to pain medication and IVF, patient refusing bed alarm. Patient made aware to call for assistance to the bathroom.
--- NOTE | 2023-05-17 21:29 | CONS_ITS ---
DATE OF SERVICE: 05/17/2023 REASON FOR CONSULTATION: Gallstone pancreatitis. HISTORY OF PRESENT ILLNESS: This has been obtained from the patient, his , and the medical record. The patient is a 73-year-old male who was in his usual state of good health up until yesterday when he developed a fairly acute onset of upper abdominal pain with associated nausea. The pain became quite severe prompting him to come to the ER. Prior to yesterday, he reports that he was basically feeling well without any significant nor chronic GI complaints. He denies any previous history of pancreatitis nor gallbladder disease in himself. He typically has a good appetite without any significant heartburn or dysphagia. His bowel movements have been regular without any sign of bleeding. He has not had any unintentional weight loss. He does not smoke nor use any significant amounts of alcohol. His family history is notable for a brother having had pancreatic cancer and subsequent surgery from which he has currently survived for 10 years. Other family members have had gallbladder disease and cholecystectomies as well. Upon admission, he was found to have pancreatitis and admitted. Over the 24 hours here, he has continued to have some abdominal pain, although perhaps feels somewhat better. He denies any chest pain or shortness of breath. MEDICATIONS: At home: none. PAST MEDICAL HISTORY: Right inguinal hernia surgery. Broken clavicle. He denies any history of heart disease, diabetes, stroke nor lung disease. SOCIAL HISTORY: He works in [employer]. He does not smoke. He does not use any significant amounts of alcohol. He is . REVIEW OF SYSTEMS: CONSTITUTIONAL: Up until yesterday was feeling well with good energy and good appetite. SKIN: No rash. No pruritus. CARDIAC: No chest pain. PULMONARY: No coughing or hemoptysis. GI: As above. URINARY: No dysuria. No hematuria. NEUROLOGIC: No headache or seizures. PSYCHIATRIC: Negative. PHYSICAL EXAMINATION: GENERAL: The patient is a pleasant alert male, in no distress. VITAL SIGNS: Have been stable and he has been afebrile. SKIN: Warm and dry. HEENT: Anicteric sclerae. Moist mucous membranes. NECK: Supple. There is no lymphadenopathy. CHEST: Clear. CARDIAC: Normal S1, S2. ABDOMEN: Soft. There was some slight distention and minimal tympany. Bowel sounds are present, but diminished. He does have fairly diffuse tenderness, but mostly in the epigastric area. There is no palpable mass. EXTREMITIES: Without edema. NEUROLOGIC: He is alert and oriented, and answers questions appropriately. LABORATORY DATA: White blood cell count 7.8, hemoglobin 15.2 with a platelet count of 181,000 today. Yesterday's labs showed a hemoglobin of 16.5. PT 11.9 with INR 1.0. Labs from yesterday showed a total bilirubin 2.1, AST 141, ALT 168, alkaline phosphatase 60, and lipase over 3000. Laboratories from today showed a total bilirubin of 3.6, direct bilirubin of 2.4, AST 190, ALT 256, and normal alkaline phosphatase. Lipase was 1428 today. He has had normal chemistries and renal function. His abdominal CT scan on admission revealed cholelithiasis and changes consistent with pancreatitis. A small umbilical hernia was also noted. An abdominal ultrasound described the gallstones, a normal intrahepatic and extrahepatic bile duct, no significant ascites, and a fatty liver. He did have a MRCP today that describes again a normal-appearing intrahepatic and extrahepatic bile duct with no choledocholithiasis. There were changes in the pancreas, consistent with his pancreatitis. There was a fatty liver. IMPRESSION: The patient presents with gallstone pancreatitis. While his LFTs have increased somewhat, it appears he has passed a common duct stone, based on his clinical history of the pancreatitis and MRCP findings. I suspect the elevated LFTs are in relation to the pancreatitis and some edema at the head of the pancreas, with a subsequent component of some partial obstruction of the biliary tree. At this point, he appears stable in regard to the pancreatitis, although still having some degree of pain. However, his laboratories are reassuring and clinically he appears stable. At this point, I do not think he needs an ERCP preoperatively. I would continue supportive care and follow up laboratories in the morning. I would recommend an eventual cholecystectomy as per Dr. Emanuel once the pancreatitis resolves. I do suspect the LFTs will eventually improve as the pancreatitis resolves. However, if the LFTs continue to rise and remain persistently elevated then please contact me and he can be reassessed for an ERCP at that time. This has all been discussed in detail with the patient and his . They are comfortable with this plan. Thanks for the consultation. MD JUAN ANTONIO Abarca/YUDI / [phone] MANDEEP
[2023-05-18] VITALS (7 sets, daily range): BP systolic 145–160; BP diastolic 60–82; PULSE 60–89; RESP 16–19; TEMP 36.8–37.5; O2SAT 93–96
[2023-05-18] MEDS: HYDROmorphone HCl 0.5 MG/0.5 ML SYRINGE IVPUSH ×3 (02:51→10:28)
[2023-05-18 05:56] LABS: MANUAL DIFF FLAG NO
[2023-05-18 06:22] LABS: Basophils Percent Auto 0.2 % (0-2); Eosinophils Percent Auto 0.1 % (0-4); Hematocrit 43.4 % (42.0-52.0); Hemoglobin 15.2 g/dl (14.0-18.0); Imm Gran Abs Auto 0.06 X10*3/uL (0.00-0.03); Imm Gran Pct Auto 0.4 % (0.0-0.4); Lymphocytes Absolute Auto 1.5 X10*3/uL (1.2-4.9); Lymphocytes Percent Auto 11.2 % (20-40); Mean Corpuscular Hemoglobin 32.1 pg (27.0-33.0); Mean Corpuscular Volume 91.8 fL (80.0-98.0); Monocytes Absolute Auto 1.1 X10*3/uL (0.1-1.2); Monocytes Percent Auto 7.8 % (2-11); Neutrophils Percent Auto 80.3 % (45-73); Platelet Count 163 X10*3/uL (160-400); Red Blood Count 4.73 X10*6/uL (4.60-5.80); Red Cell Distribution Width 12.1 % (11.0-16.0); White Blood Count 13.8 X10*3/uL (4.8-10.8)
[2023-05-18 06:37] LABS: Alanine Aminotransferase 201 U/L (0-40); Albumin Level 3.7 g/dL (3.5-5.0); Alkaline Phosphatase 63 U/L (39-117); Anion Gap 12 (12-20); Aspartate Amino Transferase 77 U/L (5-37); Bilirubin Direct 0.6 mg/dL (0.0-0.5); Bilirubin Total 1.6 mg/dL (0.0-1.0); Blood Urea Nitrogen 9 mg/dL (9-16); Calcium 8.9 mg/dL (8.4-10.2); Carbon Dioxide 25 mmol/L (22-29); Chloride 104 mmol/L (96-108); Creatinine Clr Calc Pharmacy 100.2; Estimated Glomerular Filt Rate > 60; Glucose Fasting 88 mg/dL (60-99); Lipase 94 U/L (8-78); Potassium 4.2 mmol/L (3.3-5.1); Sodium 137 mmol/L (135-145); Total Protein 6.4 g/dL (6.5-8.0)
[2023-05-18] MEDS: Lactated Ringers 1,000 ML 125 ML IVCONT ×3 (06:37→22:21)
--- NOTE | 2023-05-18 08:08 | PM.PNGS ---
Subjective Subjective Date of Service: 05/18/23 <Dianna Franks PA-C - Last Filed: 05/18/23 08:13> 05/18/23 <Gilles Subramanian MD - Last Filed: 05/18/23 08:30> Interval history: Feeling somewhat better this morning, pain improved. C/o headache. <Dianna Franks PA-C - Last Filed: 05/18/23 08:13> Physical Exam Vital Signs: Vital Signs: Last Vital Signs Temp 99.4 F 05/18/23 07:39 Pulse 83 05/18/23 07:39 Resp 16 05/18/23 07:39 BP 145/77 H 05/18/23 07:39 Pulse Ox 93 05/18/23 07:39 O2 Del Method Room Air 05/18/23 07:39 BMI result Body Mass Index 32.0 <NATTY Mike Last Filed: 05/18/23 08:13> Const: General: comfortable, no acute distress and alert <Dianna Franks PA-C - Last Filed: 05/18/23 08:13> Orientation/consciousness: patient oriented x3 <Dianna Franks PA-C - Last Filed: 05/18/23 08:13> Resp: Effort & Inspection: normal respiratory effort <Dianna Franks PA-C - Last Filed: 05/18/23 08:13> GI: Inspection: No distended <Dianna Franks PA-C - Last Filed: 05/18/23 08:13> Palpation (GI): Soft to palpation, Tenderness to palpation present (GI) in the epigastrum (mild); Cid's sign negative and with no rebound tenderness and no guarding <Dianna Franks PA-C - Last Filed: 05/18/23 08:13> Skin: General skin exam: no rashes or lesions noted <NATTY Mike Last Filed: 05/18/23 08:13> Neuro: General: patient oriented x3 and moves all extremities <NATTY Mike Last Filed: 05/18/23 08:13> Objective Data Active Medications Hydromorphone HCl (Hydromorphone Hcl 0.5 Mg/0.5 Ml Syringe) 0.5 mg IVPUSH Q3H PRN; Protocol PRN Reason: Pain, Severe (Pain Scale 7-10) Last Admin: 05/18/23 06:35 Dose: 0.5 mg Documented By: TIKA Lactated Ringer's (Lr) 1,000 mls @ 125 mls/hr IVCONT .Q8H [facility] Last Admin: 05/18/23 06:37 Dose: 125 mls/hr Documented By: TIKA Ondansetron HCl (Ondansetron Hcl 4 Mg/2 Ml Vial) 4 mg IVPUSH QID PRN PRN Reason: Nausea Last Admin: 05/17/23 14:43 Dose: 4 mg Documented By: ALVA Sodium Chloride (0.9 % Sodium Chloride Flush 3 Ml Syringe) 3 ml IVFLUSH QSHIFT [facility] Last Admin: 05/18/23 07:00 Dose: Not Given Documented By: COTEMA Non-Admin Reason: IV Running Zolpidem Tartrate (Zolpidem Tartrate 5 Mg Tablet) 5 mg PO BEDTIME PRN PRN Reason: Insomnia <Dianna Franks PA-C - Last Filed: 05/18/23 08:13> Labs CBC & Chem 7: 05/18/23 05:44 05/18/23 05:44 <Dianna Franks PA-C - Last Filed: 05/18/23 08:13> Labs: Laboratory Results - last 24 hr 05/18/23 05:44 MCV 91.8 MCH 32.1 MCHC 35.0 RDW 12.1 Plt Count 163 MPV 10.0 Immature Gran % (Auto) 0.4 Neut % (Auto) 80.3 H Lymph % (Auto) 11.2 L [place] % (Auto) 7.8 Eos % (Auto) 0.1 Baso % (Auto) 0.2 Lymph # (Auto) 1.5 [place] # (Auto) 1.1 Eos # (Auto) 0.0 Baso # (Auto) 0.0 Abs Immat Gran (auto) 0.06 H Absolute Neuts (auto) 11.0 H Absolute Nucleated RBC 0.000 Nucleated RBC % (auto) 0.0 Anion Gap 12 Estim Creat Clear Calc 100.2 Estimated GFR > 60 Fasting Glucose 88 Calcium 8.9 Total Bilirubin 1.6 H Direct Bilirubin 0.6 H AST 77 H ALT 201 H Alkaline Phosphatase 63 Total Protein 6.4 L Albumin 3.7 Lipase 94 H <Dianna Franks PA-C - Last Filed: 05/18/23 08:13> Procedures Date of Service Date of Service: 05/18/23 <Dinana Franks PA-C - Last Filed: 05/18/23 08:13> 05/18/23 <Gilles Subramanian MD - Last Filed: 05/18/23 08:30> Progress Note: A&P Assessment and plan (1) Acute gallstone pancreatitis: Status: Acute <Dianna Franks PA-C - Last Filed: 05/18/23 08:13> Assessment and Plan: pt feels much better abd soft, very minimal tenderness LFTs, lipase much improved MRCP yesterday - no CBD stones ok to start clear liquids monitor LFTs poss lap cornel on Sunday as inpt if pt stays seen and examined independently <Gilles Subramanian MD - Last Filed: 05/18/23 08:30> (2) Abnormal transaminases: Status: Acute <Dianna Franks PA-C - Last Filed: 05/18/23 08:13> Assessment and Plan: 73 year old male admitted for gallstone pancreatitis. MRCP showed no intra or extrahepatic biliary duct dilatation or filing defect and LFTs downtrending suggesting passed CBD stone. Will advance to clear liquids. Lap cornel when pancreatitis resolves, possibly Sunday if he remains inpatient. Patient comfortable with plan. <Dianna Franks PA-C - Last Filed: 05/18/23 08:13> Time Spent With Patient Time: Total time managing care of this patient today ____ minutes. <Dianna Franks PA-C - Last Filed: 05/18/23 08:13> Quality Stroke Does the patient have a stroke diagnosis?: No <Dianna Franks PA-C - Last Filed: 05/18/23 08:13> VTE Prior VTE?: No <Dianna Franks PA-C - Last Filed: 05/18/23 08:13> VTE Risk Level:: Surgical - moderate <Dianna Franks PA-C - Last Filed: 05/18/23 08:13> VTE Device Contraindication: N/A - Device Ordered <Dianna Franks PA-C - Last Filed: 05/18/23 08:13> VTE Drug Contraindication: Treatment Not Indicated <Dianna Franks PA-C - Last Filed: 05/18/23 08:13>
[2023-05-18] MEDS: ondansetron HCL 4 MG/2 ML VIAL IVPUSH ×3 (10:28→21:05)
--- NOTE | 2023-05-18 11:39 | MHC.CM.PN ---
pt lives with ,had no servceis ,is independent dc plan home no servies
[2023-05-18] MEDS: Famotidine 20 MG TABLET PO ×2 (14:50→21:05)
[2023-05-18] MEDS: Acetaminophen 325 MG TABLET 650 MG PO (14:50)
[2023-05-18] MEDS: Morphine Sulfate 4 MG/ML CARTRIDGE IVPUSH ×2 (14:50→19:35)
[2023-05-18] MEDS: 0.9 % Sodium Chloride Flush 3 ML SYRINGE IVFLUSH (21:09)
[2023-05-19] MEDS: Morphine Sulfate 4 MG/ML CARTRIDGE IVPUSH ×5 (01:10→23:49)
[2023-05-19 03:59] VITALS: BP 176/93; PULSE 80; RESP 19; TEMP 36.4; O2SAT 95
[2023-05-19] MEDS: Lactated Ringers 1,000 ML 125 ML IVCONT ×3 (05:35→20:21)
[2023-05-19 06:19] LABS: Alanine Aminotransferase 113 U/L (0-40); Albumin Level 3.6 g/dL (3.5-5.0); Alkaline Phosphatase 57 U/L (39-117); Anion Gap 11 (12-20); Aspartate Amino Transferase 33 U/L (5-37); Bilirubin Direct 0.6 mg/dL (0.0-0.5); Bilirubin Total 1.3 mg/dL (0.0-1.0); Blood Urea Nitrogen 9 mg/dL (9-16); Calcium 8.9 mg/dL (8.4-10.2); Carbon Dioxide 25 mmol/L (22-29); Chloride 103 mmol/L (96-108); Creatinine Clr Calc Pharmacy 104.6; Estimated Glomerular Filt Rate > 60; Glucose Fasting 74 mg/dL (60-99); Lipase 25 U/L (8-78); Potassium 3.8 mmol/L (3.3-5.1); Sodium 135 mmol/L (135-145); Total Protein 6.4 g/dL (6.5-8.0)
[2023-05-19 07:20] VITALS: BP 132/78; PULSE 83; RESP 16; TEMP 36.8; O2SAT 97
[2023-05-19] MEDS: Famotidine 20 MG TABLET PO ×2 (08:08→20:20)
--- NOTE | 2023-05-19 08:21 | P.PNGS_ITS ---
Subjective Subjective Date of Service: 05/19/23 Patient reports: still having pain Interval history: The patient is seen in coverage for Dr. Emanuel. Patient reports continued epigastric pain and bloating. He otherwise denies any neurologic symptoms that are localizing and denies any chest pain, difficulty breathing or shortness of breath. Physical Exam 2 Vital Signs: Vital Signs: Last Vital Signs Temp 98.3 F 05/19/23 07:20 Pulse 83 05/19/23 07:20 Resp 16 05/19/23 07:20 BP 132/78 05/19/23 07:20 Pulse Ox 97 05/19/23 07:20 O2 Del Method Room Air 05/19/23 07:20 BMI result Body Mass Index 32.0 On exam, he is nontoxic and he appears comfortable He is having no respiratory difficulty He is anicteric Abdomen is obese and tympanitic with epigastric pain with no peritoneal sign. Objective Data Active Medications Acetaminophen (Acetaminophen 325 Mg Tablet) 650 mg PO Q6H PRN PRN Reason: fever, headache Last Admin: 05/18/23 14:50 Dose: 650 mg Documented By: JEAN PIERRE Famotidine (Famotidine 20 Mg Tablet) 20 mg PO BID [facility] Last Admin: 05/19/23 08:08 Dose: 20 mg Documented By: TRISH Hydromorphone HCl (Hydromorphone Hcl 0.5 Mg/0.5 Ml Syringe) 0.5 mg IVPUSH Q3H PRN; Protocol PRN Reason: Pain, Severe (Pain Scale 7-10) Last Admin: 05/18/23 10:28 Dose: 0.5 mg Documented By: JEAN PIERRE Lactated Ringer's (Lr) 1,000 mls @ 125 mls/hr IVCONT .Q8H [facility] Last Admin: 05/19/23 05:35 Dose: 125 mls/hr Documented By: DEVAUGHN Morphine Sulfate (Morphine Sulfate 4 Mg/Ml Cartridge) 4 mg IVPUSH Q4H PRN; Protocol PRN Reason: Pain, Severe (Pain Scale 7-10) Last Admin: 05/19/23 05:35 Dose: 4 mg Documented By: DEVAUGHN Ondansetron HCl (Ondansetron Hcl 4 Mg/2 Ml Vial) 4 mg IVPUSH QID PRN PRN Reason: Nausea Last Admin: 05/18/23 21:05 Dose: 4 mg Documented By: DEVAUGHN Oxycodone HCl (Oxycodone Hcl Immed Release 5 Mg Tablet) 5 mg PO Q4H PRN PRN Reason: Pain, Moderate(Pain Scale 4-6) Sodium Chloride (0.9 % Sodium Chloride Flush 3 Ml Syringe) 3 ml IVFLUSH QSHIFT [facility] Last Admin: 05/19/23 07:03 Dose: Not Given Documented By: TRISH Non-Admin Reason: IV Running Zolpidem Tartrate (Zolpidem Tartrate 5 Mg Tablet) 5 mg PO BEDTIME PRN PRN Reason: Insomnia Labs 05/18/23 05:44 05/19/23 05:08 Labs: Laboratory Results - last 24 hr 05/19/23 05:08 Hold Purple Top SEE NOTE Anion Gap 11 L Estim Creat Clear Calc 104.6 Estimated GFR > 60 Fasting Glucose 74 Calcium 8.9 Total Bilirubin 1.3 H Direct Bilirubin 0.6 H AST 33 ALT 113 H Alkaline Phosphatase 57 Total Protein 6.4 L Albumin 3.[address] scan - abdomen: Attestation: I personally reviewed and interpreted this imaging study as follows: My impression: Consistent with pancreatitis Radiologist's impression: Pancreatitis US - abdomen: Radiologist's impression: 4 mm CBD, gallstones MRI - abdomen: Radiologist's impression: No evidence of choledocholithiasis Procedures Date of Service Date of Service: 05/19/23 Progress Note: A&P Assessment and plan (1) Acute gallstone pancreatitis: Status: Acute (2) Abnormal transaminases: Status: Acute Plan Continue NPO, IV fluid in supportive measures given ongoing pain Will reassess patient tomorrow; plan to consider cholecystectomy next week if he is still in house discussed with patient. His questions seemed to be satisfactorily answered. Time Spent With Patient Time: Total time managing care of this patient today ____ minutes. Quality Stroke Does the patient have a stroke diagnosis?: No VTE Prior VTE?: No VTE Risk Level:: Surgical - moderate VTE Device Contraindication: N/A - Device Ordered VTE Drug Contraindication: Treatment Not Indicated
[2023-05-19] MEDS: Acetaminophen 325 MG TABLET 650 MG PO (12:36)
[2023-05-19] MEDS: Docusate Sodium 100 MG CAPSULE PO ×2 (13:16→20:20)
[2023-05-19 15:14] VITALS: BP 142/70; PULSE 76; RESP 20; TEMP 36.7; O2SAT 95
[2023-05-19 19:30] VITALS: BP 136/82; PULSE 79; RESP 18; TEMP 36.8; O2SAT 97
[2023-05-19] MEDS: 0.9 % Sodium Chloride Flush 3 ML SYRINGE IVFLUSH (19:45)
--- NOTE | 2023-05-20 | ECG_ITS ---
Test Reason : epigatric pain Blood Pressure : / mmHG Vent. 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
[2023-05-20] MEDS: Lactated Ringers 1,000 ML 125 ML IVCONT ×3 (03:38→23:22)
[2023-05-20 04:00] VITALS: BP 130/85; PULSE 60; RESP 18; TEMP 36.7; O2SAT 97
[2023-05-20] MEDS: Morphine Sulfate 4 MG/ML CARTRIDGE IVPUSH ×4 (04:35→20:49)
--- NOTE | 2023-05-20 06:15 | P.PNGS_ITS ---
Subjective Subjective Date of Service: 05/20/23 Patient reports: still having pain Interval history: The patient is seen in coverage for Dr. Emanuel. Patient reports continued epigastric pain and bloating. His is been is at the bedside and they both expressed concerns regarding ongoing pain & no resolution to the symptoms. He otherwise denies any neurologic symptoms that are localizing and denies any chest pain, difficulty breathing or shortness of breath. Patient believes he is having some difficulty taking a deep breath secondary to the pain. Physical Exam 2 Vital Signs: Vital Signs: Last Vital Signs Temp 98.0 F 05/20/23 04:00 Pulse 60 05/20/23 04:00 Resp 18 05/20/23 04:00 BP 130/85 05/20/23 04:00 Pulse Ox 97 05/20/23 04:00 O2 Del Method Room Air 05/20/23 04:00 BMI result Body Mass Index 32.0 On exam, he is nontoxic and he appears comfortable He is having no respiratory difficulty He is anicteric Abdomen is obese and tympanitic with epigastric pain with no peritoneal sign. Objective Data Active Medications Acetaminophen (Acetaminophen 325 Mg Tablet) 650 mg PO Q6H PRN PRN Reason: fever, headache Last Admin: 05/19/23 12:36 Dose: 650 mg Documented By: TRISH Docusate Sodium (Docusate Sodium 100 Mg Capsule) 100 mg PO BID [facility] Last Admin: 05/19/23 20:20 Dose: 100 mg Documented By: ZAK Famotidine (Famotidine 20 Mg Tablet) 20 mg PO BID [facility] Last Admin: 05/19/23 20:20 Dose: 20 mg Documented By: ZAK Hydromorphone HCl (Hydromorphone Hcl 0.5 Mg/0.5 Ml Syringe) 0.5 mg IVPUSH Q3H PRN; Protocol PRN Reason: Pain, Severe (Pain Scale 7-10) Last Admin: 05/18/23 10:28 Dose: 0.5 mg Documented By: YARELIEMA Lactated Ringer's (Lr) 1,000 mls @ 125 mls/hr IVCONT .Q8H [facility] Last Admin: 05/20/23 03:38 Dose: 125 mls/hr Documented By: ZAK Morphine Sulfate (Morphine Sulfate 4 Mg/Ml Cartridge) 4 mg IVPUSH Q4H PRN; Protocol PRN Reason: Pain, Severe (Pain Scale 7-10) Last Admin: 05/20/23 04:35 Dose: 4 mg Documented By: ZAK Ondansetron HCl (Ondansetron Hcl 4 Mg/2 Ml Vial) 4 mg IVPUSH QID PRN PRN Reason: Nausea Last Admin: 05/18/23 21:05 Dose: 4 mg Documented By: DEVAUGHN Oxycodone HCl (Oxycodone Hcl Immed Release 5 Mg Tablet) 5 mg PO Q4H PRN PRN Reason: Pain, Moderate(Pain Scale 4-6) Sodium Chloride (0.9 % Sodium Chloride Flush 3 Ml Syringe) 3 ml IVFLUSH QSHIFT [facility] Last Admin: 05/19/23 19:45 Dose: 3 ml Documented By: ZAK Zolpidem Tartrate (Zolpidem Tartrate 5 Mg Tablet) 5 mg PO BEDTIME PRN PRN Reason: Insomnia Labs 05/20/23 10:50 05/20/23 10:50 Labs: Laboratory Results - last 24 hr 05/19/23 05:08 Hold Purple Top SEE NOTE Anion Gap 11 L Estim Creat Clear Calc 104.6 Estimated GFR > 60 Fasting Glucose 74 Calcium 8.9 Total Bilirubin 1.3 H Direct Bilirubin 0.6 H AST 33 ALT 113 H Alkaline Phosphatase 57 Total Protein 6.4 L Albumin 3.6 Lipase 25 Stat labs from today are pending Procedures Date of Service Date of Service: 05/20/23 Progress Note: A&P Assessment and plan (1) Acute gallstone pancreatitis: Status: Acute (2) Abnormal transaminases: Status: Acute (3) Epigastric abdominal pain: Status: Acute Plan The patient was seen by Dr. Thomas; in my review of the previous abdominal CT, the duodenum may be a little edematous so I have stopped Protonix and added a PPI. Will check stat labs and repeat a CT. Hospitalist to be consulted. Plan discussed with the patient and his . Patient has no right upper quadrant tenderness to suggest worsening acute cholecystitis. Additional recommendations pending additional workup ADDENDUM 1230pm White blood cell count trending down from yesterday, hemoglobin remains stable Lipase remains normal; LFTs are stable to improved. Information was relayed to the patient's nurse I suspect this is just his pancreatitis taking longer to resolve than normal, but have ordered a stat CT to exclude other significant pathology given his progression of symptoms as well as the lack of resolution. Time Spent With Patient Time: Total time managing care of this patient today ____ minutes. Quality Stroke Does the patient have a stroke diagnosis?: No VTE Prior VTE?: No VTE Risk Level:: Surgical - moderate VTE Device Contraindication: N/A - Device Ordered VTE Drug Contraindication: Treatment Not Indicated
[2023-05-20] MEDS: Docusate Sodium 100 MG CAPSULE PO ×2 (07:46→20:45)
[2023-05-20] MEDS: 0.9 % Sodium Chloride Flush 3 ML SYRINGE IVFLUSH (07:46)
[2023-05-20] MEDS: Famotidine 20 MG TABLET PO (07:46)
[2023-05-20] MEDS: oxyCODONE HCl Immed Release 5 MG TABLET PO ×2 (07:54→17:45)
[2023-05-20 08:00] VITALS: BP 155/91; PULSE 76; RESP 14; TEMP 37.2; O2SAT 94
--- NOTE | 2023-05-20 10:46 | P.CONIM_ITS ---
History of Present Illness Data of Consult Service Date: 05/20/23 Primary Care Provider: Omer Spears MD HPI Reason for consult: epigastric pain 73M no significant pmh presented with epigastric abd pain, found to have gallstone pancreatitis, MRCP with no obstructing stone, treated with ivf, pain meds, failed diet advacement. Patient reports pain is epigastric, burning, 10 10, radiating to back, worse with eating, relieved by opiates. reports pain is actually worse today. Denies shortness of breath, fever, chills. Reports mother with IL at 58, denies smoking. Review of Systems 2 Review of Systems: Yes all other systems are reviewed and are negative PMFSH Family History Brother Pancreatic cancer Social History Household Members: Spouse Housing: [facility] Do you presently have visiting nurse or other home services: No Alcohol intake: current Alcohol intake frequency: holidays/special occasions only Patient Tobacco Use Status: Never used Tobacco service: No Meds Allergies Allergy/AdvReac Type Severity Reaction Status Date / Time No Known Allergies Allergy Verified 05/16/23 16:44 Active Medications: Current Medications Acetaminophen (Acetaminophen 325 Mg Tablet) 650 mg PO Q6H PRN PRN Reason: fever, headache Last Admin: 05/19/23 12:36 Dose: 650 mg Docusate Sodium (Docusate Sodium 100 Mg Capsule) 100 mg PO BID [facility] Last Admin: 05/20/23 07:46 Dose: 100 mg Hydromorphone HCl (Hydromorphone Hcl 0.5 Mg/0.5 Ml Syringe) 0.5 mg IVPUSH Q3H PRN; Protocol PRN Reason: Pain, Severe (Pain Scale 7-10) Last Admin: 05/18/23 10:28 Dose: 0.5 mg Lactated Ringer's (Lr) 1,000 mls @ 125 mls/hr IVCONT .Q8H [facility] Last Admin: 05/20/23 03:38 Dose: 125 mls/hr Morphine Sulfate (Morphine Sulfate 4 Mg/Ml Cartridge) 4 mg IVPUSH Q4H PRN; Protocol PRN Reason: Pain, Severe (Pain Scale 7-10) Last Admin: 05/20/23 10:16 Dose: 4 mg Ondansetron HCl (Ondansetron Hcl 4 Mg/2 Ml Vial) 4 mg IVPUSH QID PRN PRN Reason: Nausea Last Admin: 05/18/23 21:05 Dose: 4 mg Oxycodone HCl (Oxycodone Hcl Immed Release 5 Mg Tablet) 5 mg PO Q4H PRN PRN Reason: Pain, Moderate(Pain Scale 4-6) Last Admin: 05/20/23 07:54 Dose: 5 mg Pantoprazole Sodium (Pantoprazole Sodium 40 Mg/10 Ml Vial) 40 mg IVPUSH DAILY@0630 [facility] Sodium Chloride (0.9 % Sodium Chloride Flush 3 Ml Syringe) 3 ml IVFLUSH QSHIFT [facility] Last Admin: 05/20/23 07:46 Dose: 3 ml Zolpidem Tartrate (Zolpidem Tartrate 5 Mg Tablet) 5 mg PO BEDTIME PRN PRN Reason: Insomnia Home Medications Medication Instructions Recorded Confirmed Last Taken Type Mushroom Complex 1 tab PO DAILY 05/16/23 05/16/23 Unknown History [place] 3 1 cap PO DAILY 05/16/23 05/16/23 05/16/23 History ascorbic acid (vitamin C) 500 mg 500 mg PO DAILY 05/16/23 05/16/23 05/16/23 History tablet biotin 1 tab PO DAILY 05/16/23 05/16/23 Unknown History cholecalciferol (vitamin D3) 25 25 mcg PO DAILY 05/16/23 05/16/23 Unknown History mcg (1,000 unit) tablet chromium 1 tab PO DAILY 05/16/23 05/16/23 Unknown History coenzyme Q10 400 mg capsule (Co 400 mg PO DAILY 05/16/23 05/16/23 Unknown History Q-10) multivitamin 1 tab PO DAILY 05/16/23 05/16/23 Unknown History psyllium seed (sugar) oral powder 1 tbsp PO DAILY 05/16/23 05/16/23 Unknown History vitamin B complex 1 tab PO DAILY 05/16/23 05/16/23 05/16/23 History Physical Exam 2 Vital Signs and Narrative: Vital Signs: Last Vital Signs Temp 99 F 05/20/23 08:00 Pulse 76 05/20/23 08:00 Resp 14 05/20/23 08:00 BP 155/91 H 05/20/23 08:00 Pulse Ox 94 11/12/23 08:00 O2 Del Method Room Air 05/20/23 08:00 BMI result Body Mass Index 32.0 General: AO X 3, no acute distress Resp: CTA bilateral, no accessory muscles used CVS: S1,S2,RRR GI: soft, epigastric tender, non distended 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
[2023-05-20 11:02] LABS: MANUAL DIFF FLAG NO
[2023-05-20] MEDS: Pantoprazole Sodium 40 MG/10 ML VIAL IVPUSH (11:03)
[2023-05-20 11:14] LABS: Basophils Percent Auto 0.4 % (0-2); Eosinophils Absolute Auto 0.1 X10*3/uL (0.0-0.4); Hematocrit 41.3 % (42.0-52.0); Hemoglobin 14.5 g/dl (14.0-18.0); Imm Gran Abs Auto 0.03 X10*3/uL (0.00-0.03); Imm Gran Pct Auto 0.3 % (0.0-0.4); Lymphocytes Absolute Auto 1.4 X10*3/uL (1.2-4.9); Lymphocytes Percent Auto 13.2 % (20-40); Mean Corpuscular HGB Conc 35.1 g/dl (31.0-36.0); Mean Corpuscular Hemoglobin 32.2 pg (27.0-33.0); Mean Corpuscular Volume 91.6 fL (80.0-98.0); Mean Platelet Volume 9.9 fL (9.4-12.4); Monocytes Percent Auto 8.9 % (2-11); Neutrophils Absolute Auto 8.3 x10*3/uL (2.0-8.3); Neutrophils Percent Auto 76.2 % (45-73); Platelet Count 150 X10*3/uL (160-400); Red Blood Count 4.51 X10*6/uL (4.60-5.80); Red Cell Distribution Width 11.9 % (11.0-16.0); White Blood Count 10.9 X10*3/uL (4.8-10.8)
[2023-05-20 11:36] LABS: Alanine Aminotransferase 65 U/L (0-40); Albumin Level 3.4 g/dL (3.5-5.0); Alkaline Phosphatase 49 U/L (39-117); Anion Gap 16 (12-20); Aspartate Amino Transferase 21 U/L (5-37); Bilirubin Total 1.2 mg/dL (0.0-1.0); Blood Urea Nitrogen 10 mg/dL (9-16); Calcium 8.8 mg/dL (8.4-10.2); Carbon Dioxide 20 mmol/L (22-29); Chloride 104 mmol/L (96-108); Creatinine Clr Calc Pharmacy 111.2; Estimated Glomerular Filt Rate > 60; Glucose Random 74 mg/dL (60-115); Lipase 22 U/L (8-78); Potassium 3.9 mmol/L (3.3-5.1); Sodium 136 mmol/L (135-145); Total Protein 6.4 g/dL (6.5-8.0)
[2023-05-20 11:40] LABS: Troponin-I High Sensitivity 7.6 ng/L (<3.5-35.0)
[2023-05-20] MEDS: iohexoL 350 MG/ML 100 ML INFUS..BTL 80 ML IV (12:37)
[2023-05-20] MEDS: Simethicone 80 MG TAB.CHEW PO (15:01)
[2023-05-20 15:51] VITALS: BP 138/64; PULSE 68; RESP 16; TEMP 37.4; O2SAT 98
[2023-05-20 19:12] VITALS: BP 148/76; PULSE 78; RESP 14; TEMP 37.2; O2SAT 94
[2023-05-21 03:14] VITALS: BP 151/82; PULSE 81; RESP 14; TEMP 36.8; O2SAT 94
[2023-05-21] MEDS: oxyCODONE HCl Immed Release 5 MG TABLET PO (03:18)
[2023-05-21] MEDS: Simethicone 80 MG TAB.CHEW PO ×2 (03:20→13:22)
[2023-05-21] MEDS: Pantoprazole Sodium 40 MG/10 ML VIAL IVPUSH (05:50)
[2023-05-21] MEDS: Lactated Ringers 1,000 ML 125 ML IVCONT ×3 (06:43→23:20)
[2023-05-21 07:45] VITALS: BP 159/80; PULSE 76; RESP 16; TEMP 37.2; O2SAT 94
[2023-05-21] MEDS: Acetaminophen 325 MG TABLET 650 MG PO ×2 (08:07→13:48)
[2023-05-21] MEDS: Docusate Sodium 100 MG CAPSULE PO ×2 (08:08→19:29)
--- NOTE | 2023-05-21 09:08 | P.PNGS_ITS ---
Subjective Subjective Date of Service: 05/21/23 <Dianna Franks PA-C - Last Filed: 05/21/23 09:15> 05/21/23 <Marquise Emanuel MD - Last Filed: 05/21/23 10:16> Interval history: Continues to have epigastric pain but developed lower crampy abdominal pain over the weekend. Passing some flatus. Taking oxycodone around the clock for the pain. <Dianna Franks PA-C - Last Filed: 05/21/23 09:15> Physical Exam 2 Vital Signs: Vital Signs: Last Vital Signs Temp 99 F 05/21/23 07:45 Pulse 76 05/21/23 07:45 Resp 16 05/21/23 07:45 BP 159/80 H 05/21/23 07:45 Pulse Ox 94 05/21/23 07:45 O2 Del Method Room Air 05/21/23 07:45 BMI result Body Mass Index 32.0 <Dianna Franks PA-C - Last Filed: 05/21/23 09:15> Const: General: comfortable, no acute distress and alert <Dianna Franks PA-C - Last Filed: 05/21/23 09:15> Orientation/consciousness: patient oriented x3 <Dianna Franks PA-C - Last Filed: 05/21/23 09:15> Resp: Effort & Inspection: normal respiratory effort <Dianna Franks PA-C - Last Filed: 05/21/23 09:15> GI: Inspection: Yes distended <Dianna Franks PA-C - Last Filed: 05/21/23 09:15> Palpation (GI): Soft to palpation and Tenderness to palpation present (GI) (mild epigastric and lower abdomen) <Dianna Franks PA-C - Last Filed: 05/21/23 09:15> Percussion: Yes tympanic to percussion <NATTY Mike Last Filed: 05/21/23 09:15> Skin: General skin exam: no rashes or lesions noted and no jaundice < Dianna Franks PA-C - Last Filed: 05/21/23 09:15> Neuro: General: patient oriented x3 and moves all extremities <Dianna Franks PA-C - Last Filed: 05/21/23 09:15> Objective Data Active Medications Acetaminophen (Acetaminophen 325 Mg Tablet) 650 mg PO Q6H PRN PRN Reason: fever, headache Last Admin: 05/21/23 08:07 Dose: 650 mg Documented By: VERONICA Docusate Sodium (Docusate Sodium 100 Mg Capsule) 100 mg PO BID [facility] Last Admin: 05/21/23 08:08 Dose: 100 mg Documented By: VERONICA Hydromorphone HCl (Hydromorphone Hcl 0.5 Mg/0.5 Ml Syringe) 0.5 mg IVPUSH Q3H PRN; Protocol PRN Reason: Pain, Severe (Pain Scale 7-10) Last Admin: 05/18/23 10:28 Dose: 0.5 mg Documented By: COTEMA Lactated Ringer's (Lr) 1,000 mls @ 125 mls/hr IVCONT .Q8H [facility] Last Admin: 05/21/23 06:43 Dose: 125 mls/hr Documented By: TIM Lactated Ringer's (Lr) 1,000 mls @ 50 mls/hr IVCONT .Q20H [facility] Morphine Sulfate (Morphine Sulfate 4 Mg/Ml Cartridge) 4 mg IVPUSH Q4H PRN; Protocol PRN Reason: Pain, Severe (Pain Scale 7-10) Last Admin: 05/20/23 20:49 Dose: 4 mg Documented By: TIM Ondansetron HCl (Ondansetron Hcl 4 Mg/2 Ml Vial) 4 mg IVPUSH QID PRN PRN Reason: Nausea Last Admin: 05/18/23 21:05 Dose: 4 mg Documented By: DEVAUGHN Oxycodone HCl (Oxycodone Hcl Immed Release 5 Mg Tablet) 5 mg PO Q4H PRN PRN Reason: Pain, Moderate(Pain Scale 4-6) Last Admin: 05/21/23 03:18 Dose: 5 mg Documented By: TIM Pantoprazole Sodium (Pantoprazole Sodium 40 Mg/10 Ml Vial) 40 mg IVPUSH DAILY@0630 [facility] Last Admin: 05/21/23 05:50 Dose: 40 mg Documented By: TIM Simethicone (Simethicone 80 Mg Tab.Chew) 80 mg PO QIDWMHS PRN PRN Reason: bloating Last Admin: 05/21/23 03:20 Dose: 80 mg Documented By: TIM Sodium Chloride (0.9 % Sodium Chloride Flush 3 Ml Syringe) 3 ml IVFLUSH QSHIFT [facility] Last Admin: 05/20/23 20:46 Dose: Not Given Documented By: TIM Non-Admin Reason: IV Running Zolpidem Tartrate (Zolpidem Tartrate 5 Mg Tablet) 5 mg PO BEDTIME PRN PRN Reason: Insomnia <Dianna Franks PA-C - Last Filed: 05/21/23 09:15> Labs CBC & Chem 7: 05/20/23 10:50 05/20/23 10:50 <Dianna Franks PA-C - Last Filed: 05/21/23 09:15> Labs: Laboratory Results - last 24 hr 05/20/23 10:50 MCV 91.6 MCH 32.2 MCHC 35.1 RDW 11.9 Plt Count 150 L MPV 9.9 Immature Gran % (Auto) 0.3 Neut % (Auto) 76.2 H Lymph % (Auto) 13.2 L [place] % (Auto) 8.9 Eos % (Auto) 1.0 Baso % (Auto) 0.4 Lymph # (Auto) 1.4 [place] # (Auto) 1.0 Eos # (Auto) 0.1 Baso # (Auto) 0.0 Abs Immat Gran (auto) 0.03 Absolute Neuts (auto) 8.3 Absolute Nucleated RBC 0.000 Nucleated RBC % (auto) 0.0 Anion Gap 16 Estim Creat Clear Calc 111.2 Estimated GFR > 60 Random Glucose 74 Calcium 8.8 Total Bilirubin 1.2 H AST 21 ALT 65 H Alkaline Phosphatase 49 Total Protein 6.4 L Albumin 3.4 L Lipase 22 <Dianna Franks PA-C - Last Filed: 05/21/23 09:15> Procedures Date of Service Date of Service: 05/21/23 <Dianna Franks PA-C - Last Filed: 05/21/23 09:15> 05/21/23 <Marquise Emanuel MD - Last Filed: 05/21/23 10:16> Progress Note: A&P Assessment and plan (1) Acute gallstone pancreatitis: Status: Acute <Dianna Franks PA-C - Last Filed: 05/21/23 09:15> (2) Ileus: Status: Acute <Dianna Franks PA-C - Last Filed: 05/21/23 09:15> Assessment and Plan: 73 year old male admitted with gallstone pancreatitis. Pancreatitis itself seems to be resolving. Now appears to have ileus likely multifactorial from narcotic use, pancreatitis. Will therefore hold on lap cornel for now and can follow up on outpatient basis. Will advance to clear liquids. Encouraged to reduce narcotics, ambulate. <Dianna Franks PA-C - Last Filed: 05/21/23 09:15> 73 year old male admitted with gallstone pancreatitis. Pancreatitis itself seems to be resolving. Now appears to have ileus likely multifactorial from narcotic use, pancreatitis. Will therefore hold on lap cornel for now and can follow up on outpatient basis. Will advance to clear liquids. Encouraged to reduce narcotics, ambulate. Agree with the above assessment and plan. Patient now with an apparent ileus with distended abdomen, tympanic to percussion. Agree that this may be related to narcotic use or inflammation from pancreatitis. Overall the pancreatitis seems much improved with improvement of the laboratories although he continues to have abdominal pain in the epigastrium. I recommended holding off on surgery to allow the ileus to resolve. He is in full agreement and will try to decrease the use of narcotic over the next day or 2. Discussed with patient's as well. <Marquise Emanuel MD - Last Filed: 05/21/23 10:16> Time Spent With Patient Time: Total time managing care of this patient today ____ minutes. <Dianna Franks PA-C - Last Filed: 05/21/23 09:15> Quality Stroke Does the patient have a stroke diagnosis?: No <Dianna Franks PA-C - Last Filed: 05/21/23 09:15> VTE Prior VTE?: No <Dianna Franks PA-C - Last Filed: 05/21/23 09:15> VTE Risk Level:: Surgical - moderate <Dianna Franks PA-C - Last Filed: 05/21/23 09:15> VTE Device Contraindication: N/A - Device Ordered <Dianna Franks PA-C - Last Filed: 05/21/23 09:15> VTE Drug Contraindication: Treatment Not Indicated <Dianna Franks PA-C - Last Filed: 05/21/23 09:15>
--- NOTE | 2023-05-21 13:21 | MHC.CM.PN ---
per rounds pt plan remains home no servies
[2023-05-21 16:00] VITALS: BP 155/82; PULSE 72; RESP 18; TEMP 36.8; O2SAT 97
[2023-05-21 19:29] VITALS: BP 174/84; PULSE 73; RESP 18; TEMP 37.3; O2SAT 96
[2023-05-21] MEDS: Morphine Sulfate 4 MG/ML CARTRIDGE IVPUSH (19:29)
[2023-05-21] MEDS: 0.9 % Sodium Chloride Flush 3 ML SYRINGE IVFLUSH (19:30)
[2023-05-21] MEDS: ondansetron HCL 4 MG/2 ML VIAL IVPUSH (19:37)
[2023-05-22] MEDS: Simethicone 80 MG TAB.CHEW PO (01:12)
--- NOTE | 2023-05-22 01:53 | PC.NURSE ---
pt c/o about the left foot the talus and calcaneus pain throughout the night. pt walking with tip toe to the BR afew times. DR. Connor notified and will do xray in the morning. other than that BS active all 4 quadrants with mild tender. once given morphine per SEP. will cont to monitor any other s/s.
[2023-05-22] MEDS: Morphine Sulfate 4 MG/ML CARTRIDGE IVPUSH (02:15)
[2023-05-22 02:32] VITALS: BP 174/86; PULSE 74; RESP 18; TEMP 36.6; O2SAT 98
[2023-05-22 02:49] VITALS: BP 148/82
[2023-05-22] MEDS: Pantoprazole Sodium 40 MG/10 ML VIAL IVPUSH (05:53)
[2023-05-22] MEDS: Lactated Ringers 1,000 ML 125 ML IVCONT ×3 (05:54→21:55)
--- NOTE | 2023-05-22 07:52 | P.PNGS_ITS ---
Subjective Subjective Date of Service: 05/22/23 Interval history: Was doing better yesterday and ambulating. He began to pass flatus and liquid stools. He developed left heel pain last night, states its severe, nonradiating. Denies calf pain. Abdominal pain is less crampy but does still have epigastric pain and had to take morphine twice last night. Physical Exam 2 Vital Signs: Vital Signs: Last Vital Signs Temp 97.9 F 05/22/23 02:32 Pulse 74 05/22/23 02:32 Resp 18 05/22/23 02:32 BP 148/82 H 05/22/23 02:49 Pulse Ox 98 05/22/23 02:32 O2 Del Method Room Air 05/22/23 02:32 BMI result Body Mass Index 32.0 Const: General: comfortable, no acute distress and alert O rientation/consciousness: patient oriented x3 Resp: Effort & Inspection: normal respiratory effort GI: Inspection: Yes distended (decreased) Palpation (GI): Soft to palpation, Tenderness to palpation present (GI) (mild epigastric ) with no rebound tenderness, no guarding and not rigid Percussion: Yes normal to percussion Skin: General skin exam: no rashes or lesions noted Neuro: General: patient oriented x3 and moves all extremities Extrem: Other: left heel without edema, erythema, mild tenderness to palpation, no fluctuance, full ROM, no calf tenderness or erythema Objective Data Active Medications Acetaminophen (Acetaminophen 325 Mg Tablet) 650 mg PO Q6H PRN PRN Reason: fever, headache Last Admin: 05/21/23 13:48 Dose: 650 mg Documented By: VERONICA Docusate Sodium (Docusate Sodium 100 Mg Capsule) 100 mg PO BID [facility] Last Admin: 05/22/23 07:36 Dose: Not Given Documented By: VERONICA Non-Admin Reason: Pt having diarrhea Hydromorphone HCl (Hydromorphone Hcl 0.5 Mg/0.5 Ml Syringe) 0.5 mg IVPUSH Q3H PRN; Protocol PRN Reason: Pain, Severe (Pain Scale 7-10) Last Admin: 05/18/23 10:28 Dose: 0.5 mg Documented By: COTEMA Lactated Ringer's (Lr) 1,000 mls @ 125 mls/hr IVCONT .Q8H [facility] Last Admin: 05/22/23 05:54 Dose: 125 mls/hr Documented By: TIM Cefotetan Disodium 2 gm/ (Sodium Chloride) 50 mls @ 100 mls/hr IV PREOP ONE Stop: 05/23/23 08:02 Morphine Sulfate (Morphine Sulfate 4 Mg/Ml Cartridge) 4 mg IVPUSH Q4H PRN; Protocol PRN Reason: Pain, Severe (Pain Scale 7-10) Last Admin: 05/22/23 02:15 Dose: 4 mg Documented By: TIM Ondansetron HCl (Ondansetron Hcl 4 Mg/2 Ml Vial) 4 mg IVPUSH QID PRN PRN Reason: Nausea Last Admin: 05/21/23 19:37 Dose: 4 mg Documented By: TIM Oxycodone HCl (Oxycodone Hcl Immed Release 5 Mg Tablet) 5 mg PO Q4H PRN PRN Reason: Pain, Moderate(Pain Scale 4-6) Last Admin: 05/21/23 03:18 Dose: 5 mg Documented By: TIM Pantoprazole Sodium (Pantoprazole Sodium 40 Mg/10 Ml Vial) 40 mg IVPUSH DAILY@0630 [facility] Last Admin: 05/22/23 05:53 Dose: 40 mg Documented By: TIM Simethicone (Simethicone 80 Mg Tab.Chew) 80 mg PO QIDWMHS PRN PRN Reason: bloating Last Admin: 05/22/23 01:12 Dose: 80 mg Documented By: TIM Sodium Chloride (0.9 % Sodium Chloride Flush 3 Ml Syringe) 3 ml IVFLUSH QSHIFT [facility] Last Admin: 05/22/23 07:36 Dose: Not Given Documented By: VERONICA Non-Admin Reason: IV Running Zolpidem Tartrate (Zolpidem Tartrate 5 Mg Tablet) 5 mg PO BEDTIME PRN PRN Reason: Insomnia Labs 05/20/23 10:50 05/20/23 10:50 Procedures Date of Service Date of Service: 05/22/23 Progress Note: A&P Assessment and plan (1) Epigastric abdominal pain: Status: Acute (2) Ileus: Status: Acute Plan 73 year old male admitted with gallstone pancreatitis. Pancreatitis resolving slowly, has persistent epigastric pain, ?passing more stones. LFTs have been downtrending, will repeat tomorrow am. Tenative plan for lap cholecystectomy for . Ileus is resolving. Will obtain left foot xray for pain. Time Spent With Patient Time: Total time managing care of this patient today ____ minutes. Quality Stroke Does the patient have a stroke diagnosis?: No VTE Prior VTE?: No VTE Risk Level:: Surgical - moderate VTE Device Contraindication: N/A - Device Ordered VTE Drug Contraindication: Treatment Not Indicated
--- NOTE | 2023-05-22 07:54 | P.PNGS_ITS ---
Subjective Subjective Date of Service: 05/22/23 Interval history: Reports less abdominal pain although required pain medication during the night. Reports new pain in the left heel with no apparent injury noted. Unable to put any weight on his left heel. Physical Exam 2 Vital Signs: Vital Signs: Last Vital Signs Temp 97.9 F 05/22/23 02:32 Pulse 74 05/22/23 02:32 Resp 18 05/22/23 02:32 BP 148/82 H 05/22/23 02:49 Pulse Ox 98 05/22/23 02:32 O2 Del Method Room Air 05/22/23 02:32 BMI result Body Mass Index 32.0 Const: General: no acute distress Nutritional Appearance: well nourished Orientation/consciousness: patient oriented x3 Resp: Effort & Inspection: normal respiratory effort GI: Other: Less distended, mild tenderness in the epigastrium. Less tympany to percussion. Skin: Other: Warm, dry, normal color Neuro: General: patient oriented x3 Extrem: Other: Left foot with no redness or swelling appreciated. Tender to light touch at the mid healed. No apparent injury noted. No calf tenderness and normal range of motion at ankle and toes. Normal right foot as well. Objective Data Active Medications Acetaminophen (Acetaminophen 325 Mg Tablet) 650 mg PO Q6H PRN PRN Reason: fever, headache Last Admin: 05/21/23 13:48 Dose: 650 mg Documented By: VERONICA Docusate Sodium (Docusate Sodium 100 Mg Capsule) 100 mg PO BID [facility] Last Admin: 05/22/23 07:36 Dose: Not Given Documented By: VERONICA Non-Admin Reason: Pt having diarrhea Hydromorphone HCl (Hydromorphone Hcl 0.5 Mg/0.5 Ml Syringe) 0.5 mg IVPUSH Q3H PRN; Protocol PRN Reason: Pain, Severe (Pain Scale 7-10) Last Admin: 05/18/23 10:28 Dose: 0.5 mg Documented By: COTEMA Lactated Ringer's (Lr) 1,000 mls @ 125 mls/hr IVCONT .Q8H [facility] Last Admin: 05/22/23 05:54 Dose: 125 mls/hr Documented By: TIM Morphine Sulfate (Morphine Sulfate 4 Mg/Ml Cartridge) 4 mg IVPUSH Q4H PRN; Protocol PRN Reason: Pain, Severe (Pain Scale 7-10) Last Admin: 05/22/23 02:15 Dose: 4 mg Documented By: TIM Ondansetron HCl (Ondansetron Hcl 4 Mg/2 Ml Vial) 4 mg IVPUSH QID PRN PRN Reason: Nausea Last Admin: 05/21/23 19:37 Dose: 4 mg Documented By: TIM Oxycodone HCl (Oxycodone Hcl Immed Release 5 Mg Tablet) 5 mg PO Q4H PRN PRN Reason: Pain, Moderate(Pain Scale 4-6) Last Admin: 05/21/23 03:18 Dose: 5 mg Documented By: TIM Pantoprazole Sodium (Pantoprazole Sodium 40 Mg/10 Ml Vial) 40 mg IVPUSH DAILY@0630 [facility] Last Admin: 05/22/23 05:53 Dose: 40 mg Documented By: TIM Simethicone (Simethicone 80 Mg Tab.Chew) 80 mg PO QIDWMHS PRN PRN Reason: bloating Last Admin: 05/22/23 01:12 Dose: 80 mg Documented By: TIM Sodium Chloride (0.9 % Sodium Chloride Flush 3 Ml Syringe) 3 ml IVFLUSH [facility] Last Admin: 05/22/23 07:36 Dose: Not Given Documented By: VERONICA Non-Admin Reason: IV Running Zolpidem Tartrate (Zolpidem Tartrate 5 Mg Tablet) 5 mg PO BEDTIME PRN PRN Reason: Insomnia Labs 05/20/23 10:50 05/20/23 10:50 Procedures Date of Service Date of Service: 05/22/23 Progress Note: A&P Assessment and plan (1) Acute gallstone pancreatitis: Status: Acute Assessment and Plan: Overall pancreatitis appears symptomatically improved although he is still having some epigastric pain. Patient was tentatively scheduled for surgery tomorrow but may need to push this back 24 hours possibly to or Sunday. Will continue on clear liquids and monitor laboratories. (2) Left foot pain: Status: Acute Assessment and Plan: Left foot of unknown etiology. No evidence of injury or infection. Will check foot x-ray this morning. Time Spent With Patient Time: Total time managing care of this patient today ____ minutes. Quality Stroke Does the patient have a stroke diagnosis?: No VTE Prior VTE?: No VTE Risk Level:: Surgical - moderate VTE Device Contraindication: N/A - Device Ordered VTE Drug Contraindication: Treatment Not Indicated
[2023-05-22 08:36] VITALS: BP 136/62; PULSE 72; RESP 16; TEMP 36.8; O2SAT 96
--- NOTE | 2023-05-22 13:06 | MHC.CM.PN ---
no plan for dc per md note surgery not till thus or fri
[2023-05-22] MEDS: Ibuprofen 600 MG TABLET PO (15:12)
[2023-05-22 15:14] VITALS: BP 147/64; PULSE 67; RESP 16; TEMP 36.6; O2SAT 94
[2023-05-22 19:48] VITALS: BP 137/79; PULSE 64; RESP 18; TEMP 36.2; O2SAT 95
[2023-05-23 04:00] VITALS: BP 149/81; PULSE 64; RESP 16; TEMP 36.3; O2SAT 96
[2023-05-23] MEDS: Pantoprazole Sodium 40 MG/10 ML VIAL IVPUSH (05:44)
[2023-05-23] MEDS: Lactated Ringers 1,000 ML 125 ML IVCONT ×3 (05:45→21:02)
[2023-05-23 06:38] LABS: MANUAL DIFF FLAG NO
[2023-05-23 06:43] LABS: Basophils Percent Auto 0.5 % (0-2); Eosinophils Absolute Auto 0.1 X10*3/uL (0.0-0.4); Eosinophils Percent Auto 1.6 % (0-4); Hematocrit 39.4 % (42.0-52.0); Hemoglobin 14.1 g/dl (14.0-18.0); Imm Gran Abs Auto 0.03 X10*3/uL (0.00-0.03); Imm Gran Pct Auto 0.4 % (0.0-0.4); Lymphocytes Absolute Auto 1.3 X10*3/uL (1.2-4.9); Lymphocytes Percent Auto 16.2 % (20-40); Mean Corpuscular HGB Conc 35.8 g/dl (31.0-36.0); Mean Corpuscular Hemoglobin 32.5 pg (27.0-33.0); Mean Corpuscular Volume 90.8 fL (80.0-98.0); Mean Platelet Volume 9.6 fL (9.4-12.4); Monocytes Absolute Auto 0.7 X10*3/uL (0.1-1.2); Monocytes Percent Auto 8.2 % (2-11); Neutrophils Absolute Auto 5.8 x10*3/uL (2.0-8.3); Neutrophils Percent Auto 73.1 % (45-73); Platelet Count 201 X10*3/uL (160-400); Red Blood Count 4.34 X10*6/uL (4.60-5.80); Red Cell Distribution Width 11.8 % (11.0-16.0); White Blood Count 7.9 X10*3/uL (4.8-10.8)
[2023-05-23 06:57] LABS: Alanine Aminotransferase 36 U/L (0-40); Albumin Level 3.3 g/dL (3.5-5.0); Alkaline Phosphatase 43 U/L (39-117); Anion Gap 15 (12-20); Aspartate Amino Transferase 18 U/L (5-37); Bilirubin Total 0.9 mg/dL (0.0-1.0); Blood Urea Nitrogen 7 mg/dL (9-16); Calcium 8.7 mg/dL (8.4-10.2); Carbon Dioxide 23 mmol/L (22-29); Chloride 105 mmol/L (96-108); Creatinine Clr Calc Pharmacy 104.6; Estimated Glomerular Filt Rate > 60; Glucose Random 93 mg/dL (60-115); Potassium 2.9 mmol/L (3.3-5.1); Sodium 140 mmol/L (135-145); Total Protein 6.2 g/dL (6.5-8.0)
[2023-05-23 08:00] VITALS: BP 166/90; PULSE 66; RESP 18; TEMP 36.7; O2SAT 95
[2023-05-23] MEDS: Potassium Chloride Packet 20 MEQ PACKET 40 MEQ PO (09:00)
--- NOTE | 2023-05-23 09:19 | P.PNGS_ITS ---
Subjective Subjective Date of Service: 05/23/23 Interval history: Reports resolution of foot pain. Epigastric pain is improving, not taking anything for pain. Physical Exam 2 Vital Signs: Vital Signs: Last Vital Signs Temp 98.0 F 05/23/23 08:00 Pulse 66 05/23/23 08:00 Resp 18 05/23/23 08:00 BP 166/90 H 05/23/23 08:00 Pulse Ox 95 05/23/23 08:00 O2 Del Method Room Air 05/23/23 08:00 O2 Flow Rate 96 05/22/23 08:36 BMI result Body Mass Index 32.0 Const: General: comfortable, no acute distress and alert O rientation/consciousness: patient oriented x3 Resp: Effort & Inspection: normal respiratory effort GI: Inspection: Yes distended Palpation (GI): Soft to palpation, Tenderness to palpation present (GI) (mild epigastric), no guarding and not rigid Skin: General skin exam: no rashes or lesions noted and no jaundice Neuro: General: patient oriented x3 and moves all extremities Objective Data Active Medications Acetaminophen (Acetaminophen 325 Mg Tablet) 650 mg PO Q6H PRN PRN Reason: fever, headache Last Admin: 05/21/23 13:48 Dose: 650 mg Documented By: VERONICA Docusate Sodium (Docusate Sodium 100 Mg Capsule) 100 mg PO BID [facility] Last Admin: 05/23/23 08:53 Dose: Not Given Documented By: AGUEDA Non-Admin Reason: Patient Refused Hydromorphone HCl (Hydromorphone Hcl 0.5 Mg/0.5 Ml Syringe) 0.5 mg IVPUSH Q3H PRN; Protocol PRN Reason: Pain, Severe (Pain Scale 7-10) Last Admin: 05/18/23 10:28 Dose: 0.5 mg Documented By: COTEMA Lactated Ringer's (Lr) 1,000 mls @ 125 mls/hr IVCONT .Q8H [facility] Last Admin: 05/23/23 05:45 Dose: 125 mls/hr Documented By: DEVAUGHN Ibuprofen (Ibuprofen 600 Mg Tablet) 600 mg PO Q8H PRN PRN Reason: heel pain Last Admin: 05/22/23 15:12 Dose: 600 mg Documented By: VERONICA Morphine Sulfate (Morphine Sulfate 4 Mg/Ml Cartridge) 4 mg IVPUSH Q4H PRN; Protocol PRN Reason: Pain, Severe (Pain Scale 7-10) Last Admin: 05/22/23 02:15 Dose: 4 mg Documented By: TIM Ondansetron HCl (Ondansetron Hcl 4 Mg/2 Ml Vial) 4 mg IVPUSH QID PRN PRN Reason: Nausea Last Admin: 05/21/23 19:37 Dose: 4 mg Documented By: TIM Oxycodone HCl (Oxycodone Hcl Immed Release 5 Mg Tablet) 5 mg PO Q4H PRN PRN Reason: Pain, Moderate(Pain Scale 4-6) Last Admin: 05/21/23 03:18 Dose: 5 mg Documented By: TIM Pantoprazole Sodium (Pantoprazole Sodium 40 Mg/10 Ml Vial) 40 mg IVPUSH DAILY@0630 [facility] Last Admin: 05/23/23 05:44 Dose: 40 mg Documented By: DEVAUGHN Simethicone (Simethicone 80 Mg Tab.Chew) 80 mg PO QIDWMHS PRN PRN Reason: bloating Last Admin: 05/22/23 01:12 Dose: 80 mg Documented By: TIM Sodium Chloride (0.9 % Sodium Chloride Flush 3 Ml Syringe) 3 ml IVFLUSH [facility] Last Admin: 05/23/23 08:52 Dose: Not Given Documented By: AGUEDA Non-Admin Reason: IV Running Zolpidem Tartrate (Zolpidem Tartrate 5 Mg Tablet) 5 mg PO BEDTIME PRN PRN Reason: Insomnia Labs 05/23/23 06:20 05/23/23 06:20 Labs: Laboratory Results - last 24 hr 05/23/23 06:20 MCV 90.8 MCH 32.5 MCHC 35.8 RDW 11.8 Plt Count 201 D MPV 9.6 Immature Gran % (Auto) 0.4 Neut % (Auto) 73.1 H Lymph % (Auto) 16.2 L [place] % (Auto) 8.2 Eos % (Auto) 1.6 Baso % (Auto) 0.5 Lymph # (Auto) 1.3 [place] # (Auto) 0.7 Eos # (Auto) 0.1 Baso # (Auto) 0.0 Abs Immat Gran (auto) 0.03 Absolute Neuts (auto) 5.8 Absolute Nucleated RBC 0.000 Nucleated RBC % (auto) 0.0 Anion Gap 15 Estim Creat Clear Calc 104.6 Estimated GFR > 60 Random Glucose 93 Calcium 8.7 Total Bilirubin 0.9 AST 18 ALT 36 Alkaline Phosphatase 43 Total Protein 6.2 L Albumin 3.3 L Procedures Date of Service Date of Service: 05/23/23 Progress Note: A&P Assessment and plan (1) Acute gallstone pancreatitis: Status: Acute (2) Ileus: Status: Acute Plan Epigastric pain improving. Abdomen remains distended but softly. LFTs normalized. Plan for lap cornel tomorrow. Patient comfortable with plan. OOB/ambulation encouraged. Left foot xray results noted, bone spur present. Ice pack and motrin ordered yesterday. Foot pain has resolved. Time Spent With Patient Time: Total time managing care of this patient today ____ minutes. Quality Stroke Does the patient have a stroke diagnosis?: No VTE Prior VTE?: No VTE Risk Level:: Surgical - moderate VTE Device Contraindication: N/A - Device Ordered VTE Drug Contraindication: Treatment Not Indicated
[2023-05-23 15:59] VITALS: BP 164/92; PULSE 65; RESP 18; TEMP 36.8; O2SAT 97
[2023-05-23 20:00] VITALS: BP 132/82; PULSE 66; RESP 18; TEMP 36.8; O2SAT 96
[2023-05-23] MEDS: Zolpidem Tartrate 5 MG TABLET PO (23:19)
[2023-05-24] VITALS (13 sets, daily range): BP systolic 140–185; BP diastolic 78–94; PULSE 71–79; RESP 16–24; TEMP 36.1–37.4; O2SAT 92–99
[2023-05-24] MEDS: Lactated Ringers 1,000 ML 125 ML IVCONT ×2 (05:38→18:19)
[2023-05-24] MEDS: Pantoprazole Sodium 40 MG/10 ML VIAL IVPUSH (05:38)
[2023-05-24 06:27] LABS: Anion Gap 14 (12-20); Blood Urea Nitrogen 6 mg/dL (9-16); Calcium 9.1 mg/dL (8.4-10.2); Carbon Dioxide 28 mmol/L (22-29); Chloride 102 mmol/L (96-108); Creatinine Clr Calc Pharmacy 101.6; Estimated Glomerular Filt Rate > 60; Glucose Random 87 mg/dL (60-115); Potassium 3.2 mmol/L (3.3-5.1); Sodium 141 mmol/L (135-145)
--- NOTE | 2023-05-24 07:59 | MHC.SHP ---
Pre-Procedural Eval Section A Date of Service: 05/24/23 The patient is an INPATIENT: Yes Changes since office visit: Yes Patient answered all questions; No Cold of Flu in the past 2 weeks, No New Medical Problems and No Changes in Medication The History & Physical has been completed within 30 days and I have reviewed it.: Yes Section B Chief Complaint: ABD PAIN XFEW HRS Allergies: Allergies Allergy/AdvReac Type Severity Reaction Status Date / Time No Known Allergies Allergy Verified 05/16/23 16:44 Plan Diagnosis/Plan: Unchanged I have reviewed the history and physical and performed a pertinent physical examination on my patient. No changes have occurred unless specified. Potassium level is improved but still low. Potassium bolus has been requested. I reviewed the procedure, risks, and alternatives of a laparoscopic or possible open cholecystectomy and he consents to the surgery. He is on the schedule for later today. Time Spent With Patient Time: Total time managing care of this patient today ____ minutes.
[2023-05-24] MEDS: Potassium Chloride/H20 10 MEQ/100 ML PIGGYBACK 100 MEQ IV ×3 (08:42→12:11)
--- NOTE | 2023-05-24 09:41 | PC.NURSE ---
IV [id number] ordered. Bag 1 of 4 started. Patient reported burning at site. MD aware. Rate slowed down to 70mL/hr. Patient tolerating well.
--- NOTE | 2023-05-24 12:20 | P.CONAN_ITS ---
[facility] Active Problems Active Problems: All Active Problems (Updated 05/22/23 @ 07:57 by Marquise Emanuel MD) Left foot pain (Acute) Ileus (Acute) Epigastric abdominal pain (Acute) Abnormal transaminases (Acute) Acute gallstone pancreatitis (Acute) Family History Family History Brother Pancreatic cancer Surgical History Surgical History H/O inguinal hernia repair History of Problems with Anesthesia: No Social History Social History Household Members: Spouse Housing: Condominium Do you presently have visiting nurse or other home services: No Alcohol intake: current Alcohol intake frequency: holidays/special occasions only Patient Tobacco Use Status: Never used Tobacco service: No Meds Allergies Allergy/AdvReac Type Severity Reaction Status Date / Time No Known Allergies Allergy Verified 05/24/23 12:51 Active Medications: Current Medications Acetaminophen (Acetaminophen 325 Mg Tablet) 650 mg PO Q6H PRN PRN Reason: fever, headache Last Admin: 05/21/23 13:48 Dose: 650 mg Docusate Sodium (Docusate Sodium 100 Mg Capsule) 100 mg PO BID [facility] Last Admin: 05/24/23 09:40 Dose: Not Given Hydromorphone HCl (Hydromorphone Hcl 0.5 Mg/0.5 Ml Syringe) 0.5 mg IVPUSH Q3H PRN; Protocol PRN Reason: Pain, Severe (Pain Scale 7-10) Last Admin: 05/18/23 10:28 Dose: 0.5 mg Lactated Ringer's (Lr) 1,000 mls @ 125 mls/hr IVCONT .Q8H [facility] Last Infusion: 05/24/23 09:40 Dose: 125 mls/hr Ibuprofen (Ibuprofen 600 Mg Tablet) 600 mg PO Q8H PRN PRN Reason: heel pain Last Admin: 05/22/23 15:12 Dose: 600 mg Morphine Sulfate (Morphine Sulfate 4 Mg/Ml Cartridge) 4 mg IVPUSH Q4H PRN; Protocol PRN Reason: Pain, Severe (Pain Scale 7-10) Last Admin: 05/22/23 02:15 Dose: 4 mg Ondansetron HCl (Ondansetron Hcl 4 Mg/2 Ml Vial) 4 mg IVPUSH QID PRN PRN Reason: Nausea Last Admin: 05/21/23 19:37 Dose: 4 mg Oxycodone HCl (Oxycodone Hcl Immed Release 5 Mg Tablet) 5 mg PO Q4H PRN PRN Reason: Pain, Moderate(Pain Scale 4-6) Last Admin: 05/21/23 03:18 Dose: 5 mg Pantoprazole Sodium (Pantoprazole Sodium 40 Mg/10 Ml Vial) 40 mg IVPUSH MATHIEU LY@0630 COUNTS INCLUDE 234 BEDS AT THE [facility] Last Admin: 05/24/23 05:38 Dose: 40 mg Simethicone (Simethicone 80 Mg Tab.Chew) 80 mg PO QIDWMHS PRN PRN Reason: bloating Last Admin: 05/22/23 01:12 Dose: 80 mg Sodium Chloride (0.9 % Sodium Chloride Flush 3 Ml Syringe) 3 ml IVFLUSH [facility] COUNTS INCLUDE 234 BEDS AT THE [facility] Last Admin: 05/24/23 08:49 Dose: Not Given Zolpidem Tartrate (Zolpidem Tartrate 5 Mg Tablet) 5 mg PO BEDTIME PRN PRN Reason: Insomnia Last Admin: 05/23/23 23:19 Dose: 5 mg Home Medications Medication Instructions Recorded Confirmed Last Taken Type Mushroom Complex 1 tab PO DAILY 05/16/23 05/16/23 Unknown History Verdigre 3 1 cap PO DAILY 05/16/23 05/16/23 05/16/23 History ascorbic acid (vitamin C) 500 mg 500 mg PO DAILY 05/16/23 05/16/23 05/16/23 History tablet biotin 1 tab PO DAILY 05/16/23 05/16/23 Unknown History cholecalciferol (vitamin D3) 25 25 mcg PO DAILY 05/16/23 05/16/23 Unknown History mcg (1,000 unit) tablet chromium 1 tab PO DAILY 05/16/23 05/16/23 Unknown History coenzyme Q10 400 mg capsule (Co 400 mg PO DAILY 05/16/23 05/16/23 Unknown History Q-10) multivitamin 1 tab PO DAILY 05/16/23 05/16/23 Unknown History psyllium seed (sugar) oral powder 1 tbsp PO DAILY 05/16/23 05/16/23 Unknown History vitamin B complex 1 tab PO DAILY 05/16/23 05/16/23 05/16/23 History Exam Height,Weight and Vital Signs: Height 5 ft 6 in Weight 90 kg Last Vital Signs Temp 96.9 F 05/24/23 07:52 Pulse 72 05/24/23 07:52 Resp 18 05/24/23 07:52 BP 140/90 H 05/24/23 07:52 Pulse Ox 98 05/24/23 07:52 O2 Del Method Room Air 05/24/23 07:52 O2 Flow Rate 96 05/22/23 08:36 Pertinent Lab Results Pertinent Lab Results: Laboratory Tests 05/16/23 05/16/23 05/17/23 17:59 18:18 04:29 WBC 9.0 7.8 RBC 5.12 4.70 Hgb 16.5 15.2 Hct 47.3 44.1 MCV 92.4 93.8 MCH 32.2 32.3 MCHC 34.9 34.5 RDW 12.2 12.3 Plt Count 186 181 MPV 9.9 10.3 Immature Gran % (Auto) 0.3 0.3 Neut % (Auto) 80.5 H 76.2 H Lymph % (Auto) 11.8 L 15.0 L [place] % (Auto) 6.6 7.5 Eos % (Auto) 0.4 0.6 Baso % (Auto) 0.4 0.4 Lymph # (Auto) 1.1 L 1.2 [place] # (Auto) 0.6 0.6 Eos # (Auto) 0.0 0.1 Baso # (Auto) 0.0 0.0 Abs Immat Gran (auto) 0.03 0.02 Absolute Neuts (auto) 7.2 5.9 Absolute Nucleated RBC 0.000 0.000 Nucleated RBC % (auto) 0.0 0.0 Hold Purple Top PT 11.9 INR 1.0 APTT 29.8 Sodium 141 141 Potassium 4.3 3.6 Chloride 109 H 110 H Carbon Dioxide 27 24 Anion Gap 9 L 11 L BUN 14 10 Creatinine 0.86 0.76 Estim Creat Clear Calc 82.6 93.5 Estimated GFR > 60 > 60 Random Glucose 108 100 Fasting Glucose Calcium 9.5 8.6 D Total Bilirubin 2.1 H 3.6 H Direct Bilirubin 2.4 H AST 141 H 190 H ALT 168 H 256 H Alkaline Phosphatase 60 63 Troponin I High Sens < 2.7 Total Protein 7.0 6.1 L Albumin 4.1 3.6 Lipase > 3000 H 1428 H Urine Color Yellow Urine Appearance Clear Urine pH 6.5 Ur Specific [place] <= 1.005 Urine Protein Negative Urine Glucose (UA) Negative Urine Ketones Negative Urine Blood Negative Urine Nitrite Negative Ur Leukocyte Esterase Negative 05/18/23 05/19/23 05/20/23 05:44 05:08 10:50 WBC 13.8 H 10.9 H RBC 4.73 4.51 L Hgb 15.2 14.5 Hct 43.4 41.3 L MCV 91.8 91.6 MCH 32.1 32.2 MCHC 35.0 35.1 RDW 12.1 11.9 Plt Count 163 150 L MPV 10.0 9.9 Immature Gran % (Auto) 0.4 0.3 Neut % (Auto) 80.3 H 76.2 H Lymph % (Auto) 11.2 L 13.2 L [place] % (Auto) 7.8 8.9 Eos % (Auto) 0.1 1.0 Baso % (Auto) 0.2 0.4 Lymph # (Auto) 1.5 1.4 [place] # (Auto) 1.1 1.0 Eos # (Auto) 0.0 0.1 Baso # (Auto) 0.0 0.0 Abs Immat Gran (auto) 0.06 H 0.03 Absolute Neuts (auto) 11.0 H 8.3 Absolute Nucleated RBC 0.000 0.000 Nucleated RBC % (auto) 0.0 0.0 Hold Purple Top SEE NOTE PT INR APTT Sodium 137 135 136 Potassium 4.2 3.8 3.9 Chloride 104 103 104 Carbon Dioxide 25 25 20 L Anion Gap 12 11 L 16 BUN 9 9 10 Creatinine 0.71 0.68 0.64 Estim Creat Clear Calc 100.2 104.6 111.2 Estimated GFR > 60 > 60 > 60 Random Glucose 74 Fasting Glucose 88 74 Calcium 8.9 8.9 8.8 Total Bilirubin 1.6 H 1.3 H 1.2 H Direct Bilirubin 0.6 H 0.6 H AST 77 H 33 21 ALT 201 H 113 H 65 H Alkaline Phosphatase 63 57 49 Troponin I High Sens 7.6 D Total Protein 6.4 L 6.4 L 6.4 L Albumin 3.7 3.6 3.4 L Lipase 94 H 25 22 Urine Color Urine Appearance Urine pH Ur Specific [place] Urine Protein Urine Glucose (UA) Urine Ketones Urine Blood Urine Nitrite Ur Leukocyte Esterase 05/23/23 05/24/23 06:20 05:27 WBC 7.9 RBC 4.34 L Hgb 14.1 Hct 39.4 L MCV 90.8 MCH 32.5 MCHC 35.8 RDW 11.8 Plt Count 201 D MPV 9.6 Immature Gran % (Auto) 0.4 Neut % (Auto) 73.1 H Lymph % (Auto) 16.2 L [place] % (Auto) 8.2 Eos % (Auto) 1.6 Baso % (Auto) 0.5 Lymph # (Auto) 1.3 [place] # (Auto) 0.7 Eos # (Auto) 0.1 Baso # (Auto) 0.0 Abs Immat Gran (auto) 0.03 Absolute Neuts (auto) 5.8 Absolute Nucleated RBC 0.000 Nucleated RBC % (auto) 0.0 Hold Purple Top PT INR APTT Sodium 140 141 Potassium 2.9 L D 3.2 L Chloride 105 102 Carbon Dioxide 23 28 Anion Gap 15 14 BUN 7 L 6 L Creatinine 0.68 0.70 Estim Creat Clear Calc 104.6 101.6 Estimated GFR > 60 > 60 Random Glucose 93 87 Fasting Glucose Calcium 8.7 9.1 Total Bilirubin 0.9 Direct Bilirubin AST 18 ALT 36 Alkaline Phosphatase 43 Troponin I High Sens Total Protein 6.2 L Albumin 3.3 L Lipase Urine Color Urine Appearance Urine pH Ur Specific [place] Urine Protein Urine Glucose (UA) Urine Ketones Urine Blood Urine Nitrite Ur Leukocyte Esterase Airway Mallampati Class: III TM Dist: >3cm Neck ROM: Full Loose/Missing/Broken Teeth: No Heart: RRR Lungs: CTA Assessment and Plan Assessment Anesthesia Assessment: Anesthesia Plan Discussed and Chart Reviewed Final Anesthetic Review History of Problems with Anesthesia: No NPO: Yes ASA Class: II Final Preanesthetic Review: Meds/Allgs Chart Reviewed, Consent Obtained/Reviewed and Anes Risks/Benef Reviewed Patient Risk: Low Procedure Risk: Intermediate Anesthetic Plan Anesthetic Plan: GA Disposition: Standard PACU
[2023-05-24] MEDS: cefoTEtan disodium 2 GM in 0.9 % Sodium Chloride 50 ML IV (13:46)
--- NOTE | 2023-05-24 15:18 | P.OP_ITS ---
Operative Note Operative Note Date of Service: 05/24/23 Narrative: Preoperative diagnosis: gallstone pancreatitis Postoperative diagnosis: Same, acute cholecystitis, cholelithiasis Procedure: Laparoscopic cholecystectomy Surgeon: Marquise Emanuel MD Cardiopulmonary Supervisor: CHEPE Mike Anesthesia: General endotracheal Indications for procedure: 73-year-old male patient presenting with complaints of abdominal pain in the epigastrium radiating to the back found to have gallsto ne pancreatitis. Workup revealed a large gallstone within the gallbladder. This appeared to be abnormal thickness of the gallbladder wall. He presents today for laparoscopic cholecystectomy. Operative findings: Acutely inflamed gallbladder with wall thickening and pericholecystic fluid Specimen: gallbladder Estimated blood loss: 20 mL Complications: none Procedure details: Patient was brought to the OR and placed in a supine position. After administering general anesthesia the patient's abdomen was prepped with ChloraPrep and draped in a sterile fashion. Local anesthesia consisting of 0.5% Sensorcaine without epinephrine was infiltrated in a periumbilical region. A 5 mm incision was made above the umbilicus in a transverse fashion. The Veress needle was then inserted while elevating abdominal cavity with towel clips. After positive drop test the abdomen was insufflated to a pressure of 15 mm of mercury. The Veress needle was then removed and a 5 mm trocar inserted. The camera was inserted in the abdomen explored. A 12 mm trocar was then placed in the epigastrium. Two 5 mm trocars placed in the right upper quadrant by the outpatient physical therapist assistant. The patient was placed in reverse Trendelenburg positioning and rotated to the left. The gallbladder was grasped with the fundus and retracted cephalad by the outpatient physical therapist assistant. The infundibulum was then grasped and retracted away from the liver bed, also by the outpatient physical therapist assistant. The Dolphin dissected was then used by the surgeon to dissect the peritoneum off the infundibulum to reveal the junction with the cystic duct. Cystic artery was noted slightly medial and posterior to the cystic duct. After obtaining a critical view the cystic duct was doubly clipped and divided. The cystic artery was then doubly clipped and divided. The gallbladder was then dissected off the liver bed using electrocautery with an L hook. Hemostasis was assured all times using the electrocautery. When the gallbladder is completely dissected off the liver bed was placed in an Endo-Catch bag and brought out through the epigastric incision. Surgicel was left on the liver bed. A Stevie-Barnett drain was left in the her bed as well and brought out through the lateral trocar site. Secured using a 4-0 nylon suture. The gallbladder was sent to pathology for further examination. The abdomen was then re-examined. The liver bed was irrigated and suctioned dry. No bleeding or bile leak could be identified. CO2 was then evacuated and all trocars removed. Fascia was closed at the epigastric incision using a [id number] 0 Polysorb suture. Skin was closed in all incisions using a subcuticular 4 0 Polysorb suture by both the surgeon and outpatient physical therapist assistant. Sterile dressings consisting of Steri-Strips, 2 x 2 gauze, and Tegaderm were then appl ied. The patient tolerated the procedure well. Sponge instrument and needle counts reported as correct. The patient was transferred to PACU in stable condition.
[2023-05-24] MEDS: HYDROmorphone HCl 0.5 MG/0.5 ML SYRINGE 0.25 MG IVPUSH ×2 (15:52→15:57)
--- NOTE | 2023-05-24 18:46 | PC.NURSE ---
Assumed care of patient at approximately 1640. Patient s/p lap cornel. Patient A&Ox4 and reports tolerable pain level. JENISE drain to RUQ with 40mL of sanguinous drainage. 3 laparscopic incisions to abdomen- 2x2 with tegaderms, C/D/I. Vital signs stable. Respirations even and shallow due to pain. Patient splinting abdomen with pillow with positive effect. Patient on 2L NC.
--- NOTE | 2023-05-24 19:23 | PC.NURSE ---
Pt Potassium Chloride bag number [address] Marquise Emanuel stated to cancel medication and will recheck potassium level in am.
[2023-05-24] MEDS: Morphine Sulfate 4 MG/ML CARTRIDGE IVPUSH (19:36)
[2023-05-25] MEDS: Morphine Sulfate 4 MG/ML CARTRIDGE IVPUSH ×2 (01:36→05:55)
[2023-05-25] MEDS: Lactated Ringers 1,000 ML 125 ML IVCONT (01:40)
[2023-05-25 03:44] VITALS: BP 152/84; PULSE 69; RESP 17; TEMP 36.9; O2SAT 94
[2023-05-25] MEDS: Pantoprazole Sodium 40 MG/10 ML VIAL IVPUSH (05:55)
[2023-05-25 06:21] LABS: MANUAL DIFF FLAG NO
[2023-05-25 06:29] LABS: Basophils Percent Auto 0.2 % (0-2); Eosinophils Percent Auto 0.1 % (0-4); Hematocrit 39.1 % (42.0-52.0); Hemoglobin 14.1 g/dl (14.0-18.0); Imm Gran Abs Auto 0.05 X10*3/uL (0.00-0.03); Imm Gran Pct Auto 0.6 % (0.0-0.4); Lymphocytes Absolute Auto 1.2 X10*3/uL (1.2-4.9); Lymphocytes Percent Auto 14.1 % (20-40); Mean Corpuscular HGB Conc 36.1 g/dl (31.0-36.0); Mean Corpuscular Volume 88.9 fL (80.0-98.0); Mean Platelet Volume 9.5 fL (9.4-12.4); Monocytes Absolute Auto 0.8 X10*3/uL (0.1-1.2); Neutrophils Absolute Auto 6.6 x10*3/uL (2.0-8.3); Platelet Count 249 X10*3/uL (160-400); Red Cell Distribution Width 11.7 % (11.0-16.0); White Blood Count 8.7 X10*3/uL (4.8-10.8)
[2023-05-25 06:40] LABS: Alanine Aminotransferase 53 U/L (0-40); Albumin Level 3.3 g/dL (3.5-5.0); Alkaline Phosphatase 41 U/L (39-117); Anion Gap 12 (12-20); Aspartate Amino Transferase 35 U/L (5-37); Bilirubin Total 0.7 mg/dL (0.0-1.0); Blood Urea Nitrogen 10 mg/dL (9-16); Calcium 8.7 mg/dL (8.4-10.2); Carbon Dioxide 25 mmol/L (22-29); Chloride 105 mmol/L (96-108); Creatinine Clr Calc Pharmacy 100.2; Estimated Glomerular Filt Rate > 60; Glucose Random 109 mg/dL (60-115); Potassium 3.7 mmol/L (3.3-5.1); Sodium 138 mmol/L (135-145); Total Protein 6.1 g/dL (6.5-8.0)
[2023-05-25 07:45] VITALS: BP 140/80; PULSE 63; RESP 18; TEMP 36.3; O2SAT 97
--- NOTE | 2023-05-25 07:54 | P.PNGS_ITS ---
Subjective Subjective Date of Service: 05/25/23 <Dianna Franks PA-C - Last Filed: 05/25/23 08:01> 05/25/23 <Marquise Emanuel MD - Last Filed: 05/25/23 08:48> Interval history: Feels a little better this morning, mild incisional pain. <Dianna Franks PA-C - Last Filed: 05/25/23 08:01> Physical Exam 2 Vital Signs: Vital Signs: Last Vital Signs Temp 97.4 F 05/25/23 07:45 Pulse 63 05/25/23 07:45 Resp 18 05/25/23 07:45 BP 140/80 H 05/25/23 07:45 Pulse Ox 97 05/25/23 07:45 O2 Del Method Nasal Cannula 05/25/23 07:45 O2 Flow Rate 2 05/25/23 07:45 BMI result Body Mass Index 32.0 <Dianna Franks PA-C - Last Filed: 05/25/23 08:01> Const: General: comfortable, no acute distress and alert <Dianna Franks PA-C - Last Filed: 05/25/23 08:01> Orientation/consciousness: patient oriented x3 <Dianna Franks PA-C - Last Filed: 05/25/23 08:01> Resp: Effort & Inspection: normal respiratory effort <Dianna Franks PA-C - Last Filed: 05/25/23 08:01> GI: Other: JENISE dark output, nonbilious <Dianna Franks PA-C - Last Filed: 05/25/23 08:01> Inspection: Yes distended (mild) and Yes incision (dressings intact) < Dianna Franks PA-C - Last Filed: 05/25/23 08:01> Palpation (GI): Soft to palpation, Tenderness to palpation present (GI) (mild incisional), no guarding and not rigid <NATTY Mike Last Filed: 05/25/23 08:01> Skin: General skin exam: no rashes or lesions noted and no jaundice < Dianna Franks PA-C - Last Filed: 05/25/23 08:01> Neuro: General: patient oriented x3 <Dianna Franks PA-C - Last Filed: 05/25/23 08:01> Objective Data Active Medications Acetaminophen (Acetaminophen 325 Mg Tablet) 650 mg PO Q6H PRN PRN Reason: fever, headache Last Admin: 05/21/23 13:48 Dose: 650 mg Documented By: VERONICA Albuterol Sulfate (Albuterol Sulfate (0.083%) 2.5 Mg/3 Ml Vial.Neb) 2.5 mg INHALE ONCE PRN PRN Reason: Wheezing Docusate Sodium (Docusate Sodium 100 Mg Capsule) 100 mg PO BID [facility] Last Admin: 05/24/23 21:42 Dose: Not Given Documented By: ZAK Non-Admin Reason: Patient Refused Morphine Sulfate (Morphine Sulfate 4 Mg/Ml Cartridge) 4 mg IVPUSH Q4H PRN; Protocol PRN Reason: Pain, Severe (Pain Scale 7-10) Last Admin: 05/25/23 05:55 Dose: 4 mg Documented By: ZAK Ondansetron HCl (Ondansetron Hcl 4 Mg/2 Ml Vial) 4 mg IVPUSH QID PRN PRN Reason: Nausea Last Admin: 05/21/23 19:37 Dose: 4 mg Documented By: TIM Ondansetron HCl (Ondansetron Hcl 4 Mg/2 Ml Vial) 4 mg IVPUSH ONCE PRN PRN Reason: Nausea and Vomiting Oxycodone HCl (Oxycodone Hcl Immed Release 5 Mg Tablet) 5 mg PO Q4H PRN PRN Reason: Pain, Moderate(Pain Scale 4-6) Last Admin: 05/21/23 03:18 Dose: 5 mg Documented By: TIM Pantoprazole Sodium (Pantoprazole Sodium 40 Mg/10 Ml Vial) 40 mg IVPUSH DAILY@0630 [facility] Last Admin: 05/25/23 05:55 Dose: 40 mg Documented By: ZAK Simethicone (Simethicone 80 Mg Tab.Chew) 80 mg PO QIDWMHS PRN PRN Reason: bloating Last Admin: 05/22/23 01:12 Dose: 80 mg Documented By: TIM Sodium Chloride (0.9 % Sodium Chloride Flush 3 Ml Syringe) 3 ml IVFLUSH QSHIFT [facility] Last Admin: 05/25/23 01:41 Dose: Not Given Documented By: ZAK Non-Admin Reason: IV Running Zolpidem Tartrate (Zolpidem Tartrate 5 Mg Tablet) 5 mg PO BEDTIME PRN PRN Reason: Insomnia Last Admin: 05/23/23 23:19 Dose: 5 mg Documented By: ZAK <Dianna Franks PA-C - Last Filed: 05/25/23 08:01> Labs CBC & Chem 7: 05/25/23 06:06 05/25/23 06:06 <Dianna Franks PA-C - Last Filed: 05/25/23 08:01> Labs: Laboratory Results - last 24 hr 05/25/23 06:06 MCV 88.9 MCH 32.0 MCHC 36.1 H RDW 11.7 Plt Count 249 MPV 9.5 Immature Gran % (Auto) 0.6 H Neut % (Auto) 76.0 H Lymph % (Auto) 14.1 L [place] % (Auto) 9.0 Eos % (Auto) 0.1 Baso % (Auto) 0.2 Lymph # (Auto) 1.2 [place] # (Auto) 0.8 Eos # (Auto) 0.0 Baso # (Auto) 0.0 Abs Immat Gran (auto) 0.05 H Absolute Neuts (auto) 6.6 Absolute Nucleated RBC 0.000 Nucleated RBC % (auto) 0.0 Anion Gap 12 Estim Creat Clear Calc 100.2 Estimated GFR > 60 Random Glucose 109 Calcium 8.7 Total Bilirubin 0.7 AST 35 ALT 53 H Alkaline Phosphatase 41 Total Protein 6.1 L Albumin 3.3 L <Dianna Franks PA-C - Last Filed: 05/25/23 08:01> Procedures Date of Service Date of Service: 05/25/23 <Dianna Franks PA-C - Last Filed: 05/25/23 08:01> 05/25/23 <Marquise Emanuel MD - Last Filed: 05/25/23 08:48> Progress Note: A&P Assessment and plan (1) Ileus: Status: Acute <Dianna Franks PA-C - Last Filed: 05/25/23 08:01> (2) Acute gallstone pancreatitis: Status: Acute <Dianna Franks PA-C - Last Filed: 05/25/23 08:01> (3) Acute cholecystitis: Status: Acute <Dianna Franks PA-C - Last Filed: 05/25/23 08:01> Assessment and Plan: POD #1 s/p lap cholecystectomy JENISE output nonbilious Doing well post op, pain controlled, diet as tolerated, dc IVF AM labs reviewed OOB/ambulation and IS encouraged Home over weekend when pain controlled with PO analgesics, tolerating solid diet Likely remove JENISE prior dispo <Dianna Franks PA-C - Last Filed: 05/25/23 08:01> POD #1 s/p lap cholecystectomy JENISE output nonbilious Doing well post op, pain controlled, diet as tolerated, dc IVF AM labs reviewed OOB/ambulation and IS encouraged Home over weekend when pain controlled with PO analgesics, tolerating solid diet Likely remove JENISE prior dispo Agree with the above assessment and plan. Continue JENISE drainage Planned discharge to home on Sunday. <Marquise Emanuel MD - Last Filed: 05/25/23 08:48> Time Spent With Patient Time: Total time managing care of this patient today ____ minutes. <Dianna Franks PA-C - Last Filed: 05/25/23 08:01> Quality Stroke Does the patient have a stroke diagnosis?: No <Dianna Franks PA-C - Last Filed: 05/25/23 08:01> VTE Prior VTE?: No <Dianna Franks PA-C - Last Filed: 05/25/23 08:01> VTE Risk Level:: Surgical - moderate <NATTY Mike Last Filed: 05/25/23 08:01> VTE Device Contraindication: N/A - Device Ordered <Dianna Franks PA-C - Last Filed: 05/25/23 08:01> VTE Drug Contraindication: Treatment Not Indicated <Dianna Franks PA-C - Last Filed: 05/25/23 08:01>
[2023-05-25 08:00] VITALS: BP 142/82; PULSE 66; RESP 18; TEMP 36.3; O2SAT 96
--- NOTE | 2023-05-25 11:49 | HO.POSTANES ---
Post Anesthesia Evaluation Post Anesthesia Evaluation Date of Service: 05/25/23 Vital Signs: Vital Signs Temp Pulse Resp BP Pulse Ox O2 Del Method O2 Flow Rate 05/25/23 07:45 97.4 F 63 18 140/80 H 97 Nasal Cannula 2 05/25/23 03:44 98.4 F 69 17 152/84 H 94 Room Air Anesthesia: General Endotracheal-GETA Mental Status: Awake Pain Control: Satisfactory Nausea/Vomiting: None Hydration: Adequate Anesthesia-Related Issues: No Anes. Related Issues
[2023-05-25 12:00] VITALS: BP 130/80; PULSE 79; RESP 18; TEMP 36.2; O2SAT 92
[2023-05-25 19:30] VITALS: BP 159/87; PULSE 75; RESP 14; TEMP 36.3; O2SAT 93
[2023-05-25] MEDS: Acetaminophen 325 MG TABLET 650 MG PO (21:10)
[2023-05-25] MEDS: 0.9 % Sodium Chloride Flush 3 ML SYRINGE IVFLUSH (21:11)
[2023-05-25] MEDS: Docusate Sodium 100 MG CAPSULE PO (21:11)
[2023-05-26] MEDS: Acetaminophen 325 MG TABLET 650 MG PO (08:16)
[2023-05-26] MEDS: 0.9 % Sodium Chloride Flush 3 ML SYRINGE IVFLUSH ×3 (08:17→20:18)
--- NOTE | 2023-05-26 12:06 | P.PNGS_ITS ---
Subjective Subjective Date of Service: 05/26/23 Interval history: Uneventful evening. Moderately Tolerating his diet. Incisional discomfort improving. Physical Exam 2 Vital Signs: Vital Signs: Last Vital Signs Temp 97.4 F 05/25/23 19:30 Pulse 75 05/25/23 19:30 Resp 14 05/25/23 19:30 BP 159/87 H 05/25/23 19:30 Pulse Ox 93 05/25/23 19:30 O2 Del Method Room Air 05/25/23 19:30 O2 Flow Rate 2 05/25/23 07:45 BMI result Body Mass Index 32.0 GI: Other: Abdomen soft. Wound clean dry and intact. Objective Data Active Medications Acetaminophen (Acetaminophen 325 Mg Tablet) 650 mg PO Q6H PRN PRN Reason: fever, headache Last Admin: 05/26/23 08:16 Dose: 650 mg Documented By: OFELIA Docusate Sodium (Docusate Sodium 100 Mg Capsule) 100 mg PO BID [facility] Last Admin: 05/26/23 08:17 Dose: Not Given Documented By: OFELIA Non-Admin Reason: patient reports diarrhea Morphine Sulfate (Morphine Sulfate 4 Mg/Ml Cartridge) 4 mg IVPUSH Q4H PRN; Protocol PRN Reason: Pain, Severe (Pain Scale 7-10) Last Admin: 05/25/23 05:55 Dose: 4 mg Documented By: ZAK Ondansetron HCl (Ondansetron Hcl 4 Mg/2 Ml Vial) 4 mg IVPUSH QID PRN PRN Reason: Nausea Last Admin: 05/21/23 19:37 Dose: 4 mg Documented By: TIM Oxycodone HCl (Oxycodone Hcl Immed Release 5 Mg Tablet) 5 mg PO Q4H PRN PRN Reason: Pain, Moderate(Pain Scale 4-6) Last Admin: 05/21/23 03:18 Dose: 5 mg Documented By: TIM Simethicone (Simethicone 80 Mg Tab.Chew) 80 mg PO QIDWMHS PRN PRN Reason: bloating Last Admin: 05/22/23 01:12 Dose: 80 mg Documented By: TIM Sodium Chloride (0.9 % Sodium Chloride Flush 3 Ml Syringe) [facility] Last Admin: 05/26/23 08:17 Dose: 3 ml Documented By: OFELIA Labs 05/25/23 06:06 05/25/23 06:06 Procedures Date of Service Date of Service: 05/26/23 Progress Note: A&P Assessment and plan (1) Acute cholecystitis: Status: Acute Plan Patient does not feel ready to be discharged home yet. Out of bed/ambulate, incentive spirometry, diet as tolerated Time Spent With Patient Time: Total time managing care of this patient today ____ minutes. Quality Stroke Does the patient have a stroke diagnosis?: No VTE Prior VTE?: No VTE Risk Level:: Surgical - moderate VTE Device Contraindication: N/A - Device Ordered VTE Drug Contraindication: Treatment Not Indicated
[2023-05-26 15:25] VITALS: BP 132/70; PULSE 67; RESP 18; TEMP 36.4; O2SAT 96
[2023-05-26 23:31] VITALS: BP 134/81; PULSE 67; RESP 18; TEMP 36.8; O2SAT 94
[2023-05-27 07:33] VITALS: BP 142/79; PULSE 69; RESP 18; TEMP 36.8; O2SAT 95
[2023-05-27] MEDS: 0.9 % Sodium Chloride Flush 3 ML SYRINGE IVFLUSH (08:16)
--- NOTE | 2023-05-27 10:50 | PM.PNGS ---
Subjective Subjective Date of Service: 05/27/23 Interval history: Patient is doing well. Uneventful evening. Tolerating diet. Ambulating. Wishes to go home. Physical Exam Vital Signs: Vital Signs: Last Vital Signs Temp 98.3 F 05/27/23 07:33 Pulse 69 05/27/23 07:33 Resp 18 05/27/23 07:33 BP 142/79 H 05/27/23 07:33 Pulse Ox 95 05/27/23 07:33 O2 Del Method Room Air 05/27/23 07:33 O2 Flow Rate 2 05/25/23 07:45 BMI result Body Mass Index 32.0 Eyes: Other: Anicteric GI: Other: Abdomen soft, benign. JENISE drain scan output. Drain uneventfully removed. Objective Data Active Medications Acetaminophen (Acetaminophen 325 Mg Tablet) 650 mg PO Q6H PRN PRN Reason: fever, headache Last Admin: 05/26/23 08:16 Dose: 650 mg Documented By: OFELIA Docusate Sodium (Docusate Sodium 100 Mg Capsule) 100 mg PO BID [facility] Last Admin: 05/27/23 10:31 Dose: Not Given Documented By: MILLY Non-Admin Reason: Patient Refused Morphine Sulfate (Morphine Sulfate 4 Mg/Ml Cartridge) 4 mg IVPUSH Q4H PRN; Protocol PRN Reason: Pain, Severe (Pain Scale 7-10) Last Admin: 05/25/23 05:55 Dose: 4 mg Documented By: ZAK Ondansetron HCl (Ondansetron Hcl 4 Mg/2 Ml Vial) 4 mg IVPUSH QID PRN PRN Reason: Nausea Last Admin: 05/21/23 19:37 Dose: 4 mg Documented By: TIM Oxycodone HCl (Oxycodone Hcl Immed Release 5 Mg Tablet) 5 mg PO Q4H PRN PRN Reason: Pain, Moderate(Pain Scale 4-6) Last Admin: 05/21/23 03:18 Dose: 5 mg Documented By: TIM Simethicone (Simethicone 80 Mg Tab.Chew) 80 mg PO QIDWMHS PRN PRN Reason: bloating Last Admin: 05/22/23 01:12 Dose: 80 mg Documented By: TIM Sodium Chloride (0.9 % Sodium Chloride Flush 3 Ml Syringe) 3 ml IVFLUSH QSHIFT [facility] Last Admin: 05/27/23 08:16 Dose: 3 ml Documented By: MILLY Labs 05/25/23 06:06 05/25/23 06:06 Procedures Date of Service Date of Service: 05/27/23 Progress Note: A&P Assessment and plan (1) Acute cholecystitis: Status: Acute Plan Discharge patient home with follow-up instructions and discharge instructions Time Spent With Patient Time: Total time managing care of this patient today ____ minutes. Quality Stroke Does the patient have a stroke diagnosis?: No VTE Prior VTE?: No VTE Risk Level:: Surgical - moderate VTE Device Contraindication: N/A - Device Ordered VTE Drug Contraindication: Treatment Not Indicated
--- NOTE | 2023-05-27 11:32 | MHC.CM.PN ---
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
--- NOTE | 2023-05-29 09:41 | P.DS_ITS ---
DS: Providers Provider Date of Service: 05/27/23 Date of admission: 05/16/23 20:41 Primary care physician: Omer Spears MD Consults: 05/16/23 20:33 Consult to Gastroenterology Routine Consulting Provider: Mohan Thomas Reason for consultation: gallstone pancreatitis Has provider been notified: No 05/20/23 10:33 Consult to Hospitalist Routine Comment: Consulting Provider: Hospitalist Reason For Exam: epigastric pain DS: Diagnosis Discharge Diagnosis (1) Acute cholecystitis: Status: Acute DS: Summary Hospital Course Hospital Course: HPI AT ADMISSION: Pb Ferguson is a 73 year old male Presenting with complaints of abdominal pain in the epigastrium. The pain began initially around 12:00 but gradually decreased in severity until approximately 15:00 but became very severe. The pain was mainly felt in the epigastrium with a small amount of pain into the back. He denies any previous history of similar pain although he has had some back pain associated with packing boxes. When the pain became so severe he presented to the emergency department for further evaluation. Patient was noted to be tender in the epigastrium but no tenderness in the right upper quadrant. Workup revealed an elevated lipase of [address] abdomen and pelvis revealed a large gallstone within the gallbladder with evidence of pancreatitis. Ultrasound also confirmed gallstones within the gallbladder with no secondary evidence of acute cholecystitis. A normal appearing common bile duct was noted. Overnight patient reports slight decrease in abdominal pain but still with this sharp epigastric location. Repeat laboratories revealed decrease in the lipase level however and bilirubin to have increased. He denies heavy alcohol use and reports only social alcohol. He has a recent history of 25 lb of weight gain but is unaware of any hyperlipidemia. Findings suggestive of gallstone pancreatitis. HOSPITAL COURSE: He was admitted to the surgical service for further treatment of the gallstone pancreatitis. He was treated supportively with bowel rest, IVF, PRN analgesics and antiemetics. MRCP was obtained to evaluate the pancreas and common bile duct as well as a gastroenterology consultation. MRCP revealed normal appearing bile ducts without any evidence of a CBD stone nor obstruction. His LFTs slowly improved however he had persistent epigastric pain requiring frequent narcotics and subsequently developed distention and obstipation. Laparoscopic cholecystectomy was held off during this time until his abdominal distention improved. His activity was increased, bowel regimen added and encouraged to reduce narcotic load as tolerated. He began to pass continuous flatus and move his bowels with improvement in his distention. A laparoscopic cholecystectomy was performed on 05/24/[address] Emanuel without complication. His gallbladder was thickened and edematous intraopertively and JENISE drain was placed. The patient tolerated the procedure well. His diet was advanced to solids following. He had an uncomplicated but slow recovery course and remained inpatient until POD #3 for pain control and increasing activity. On the day of discharge, he was tolerating a solid diet without nausea or vomiting. His pain was controlled on oral analgesics. He was ambulating without difficulty. His abdomen was benign with appropriate post op tenderness and clean incisions. His JENISE drain had scant nonbilious output and was removed. He was discharged to home on 05/27/23 in stable condition. He is to follow up in the office in 1 week. Status at Discharge Functional status at discharge: independent ambulation Overall status at discharge: patient is progressing back to baseline Time Attestation Discharge coordination time: Less than 30 minutes Quality: Safe Use of Opioids Does Pt have an Active Cancer Diagnosis on the Problem List?: No Quality: Stroke Does the patient have a stroke diagnosis?: No Physical Exam Vital Signs: Vital Signs: Last Vital Signs Temp 98.3 F 05/27/23 07:33 Pulse 69 05/27/23 07:33 Resp 18 05/27/23 07:33 BP 142/79 H 05/27/23 07:33 Pulse Ox 95 05/27/23 07:33 O2 Del Method Room Air 05/27/23 07:33 O2 Flow Rate 2 05/25/23 07:45 BMI result Body Mass Index 32.0 Const: General: no acute distress Orientation/consciousness: patient oriented x3 GI: Inspection: Yes incision (clean) Palpation (GI): Soft to palpation and no guarding Skin: General skin exam: no jaundice Neuro: General: patient oriented x3 DS: Data Data Completed and Pending Pending studies at discharge: Pending at discharge 05/24/23 15:01 Surgical [PTH] Routine Discharge Plan Discharge Anticipated Discharge Date/Time: 05/27/23 12:56 Patient Disposition: Home, Self-Care Discharge Diagnosis: gallstone pancreatitis, s/p laparoscopic cholecystectomy Referrals: Omer Spears MD [Primary Care Provider] - 1 Week Marquise Emanuel MD [Physician] - 1 Week Discharge Medications: New oxycodone 5 mg tablet 5 mg PO Q4H PRN (Reason: pain (scale score 7-10)) Qty: 24 0RF Rx Instructions: Partial Fill upon patient request. hydrocodone-acetaminophen 5-325 mg tablet 1 tab PO Q4-6H PRN (Reason: pain) Qty: 30 0RF Rx Instructions: Partial Fill upon patient request. Continued multivitamin Tablet 1 tab PO DAILY ascorbic acid (vitamin C) 500 mg Tablet 500 mg PO DAILY vitamin B complex Tablet 1 tab PO DAILY psyllium seed (sugar) Powder 1 tbsp PO DAILY cholecalciferol (vitamin D3) 25 mcg (1,000 unit) Tablet 25 mcg PO DAILY coenzyme Q10 [Co Q-10] 400 mg Capsule 400 mg PO DAILY Mushroom Complex 1 tab PO DAILY [place] 3 1 cap PO DAILY biotin 1 tab PO DAILY chromium 1 tab PO DAILY Discharge Orders: Discharge Order (Routine); Ordered 05/27/23 Ordered By: Saul Ellison Diet: Low fat, low cholesterol Activity on Discharge: No heavy lifting Stand Alone Forms: Patient Portal Discharge page Activity Restrictions/Additional Instructions: If the incision area is tender, you may apply an ice pack for short intervals (No more than 20 minutes on, followed by at least 20 minutes off). Do not apply heat. Do not use creams, lotions, or topical antibiotics. These can cause infection or allergic reaction. Ok to shower. Remove clear dressings 3 days following your procedure. You have steri strips (small white cloth strips) covering your incision- these will fall off ~1 week. No heavy lifting (>10lbs) or strenuous activity! Follow up in office with Dr. Emanuel in 1 week. ([phone]) Call Your Doctor If: -Your temperature exceeds 101.5? F -You experience excessive pain or swelling -You have an unexpected reaction to medication -You have excessive bleeding -You experience continued vomiting/nausea -Your incision begins to separate -Your incision shows signs of infection such as increased redness, swelling, excessive pain, drainage (light blood or clear fluid is normal) or heat Care Plan Goals: Return to baseline health and resume normal activities following recovery period. Health Concerns: gallstone pancreatitis acute cholecystitis Plan of Treatment: s/p laparoscopic cholecystectomy JENISE drain removal f/u in office in 1 week Assessment: Doing well post op Discharge Date/Time: 05/27/23 15:15
== END 2023-05-27 15:15 | disposition home or self-care (01) | DRG 263 ==
LOC: HO.ED 18:55 → HO.EDOVER 20:54 → HO.S3 05-17 13:34
PROVIDERS: Internal Medicine; Physician Assistant; Physician Assistant Surgical; Surgery; Admitting Provider Student in an Organized Health Care Education/Training Program; Emergency Provider Emergency Medicine; PCP Internal Medicine; Visit Provider Surgery
PROC: 0FT44ZZ Resection of Gallbladder, Percutaneous Endoscopic Approach (ICD-10-PCS; CPT 47562; principal; 2023-05-24 13:30)
DX: K80.00 Calculus of gallbladder with acute cholecystitis without obstruction (principal); K85.10 Biliary acute pancreatitis without necrosis or infection; K56.7 Ileus, unspecified; M77.32 Calcaneal spur, left foot; T40.605A Adverse effect of unspecified narcotics, initial encounter; K29.70 Gastritis, unspecified, without bleeding; Z79.899 Other long term (current) drug therapy
CPT/HCPCS: 36415; 73620; 74177; 74181; 76705; 80048; 80053; 80076; 81003; 82248; 83690; 84484; 85025; 85610; 85730; 88304; 88342; 93005; 99285; C9113; J0131; J0360; J0665; J1100; J1170; J1805; J2250; J2270; J2405; J2704; J3010; J3480; J7120; Q9967

== ENCOUNTER → 2023-05-16 20:41 | Outpatient (BNV) | payer OTHER, SELFPAY | PROVIDERS: Admitting Provider Student in an Organized Health Care Education/Training Program; Emergency Provider Emergency Medicine; PCP Internal Medicine; Visit Provider Internal Medicine | DX: R10.13 Epigastric pain (principal) | CPT/HCPCS: 99222 ==

== ENCOUNTER → 2023-05-16 20:41 | Outpatient (BNV) | payer OTHER, SELFPAY | PROVIDERS: Admitting Provider Student in an Organized Health Care Education/Training Program; Emergency Provider Emergency Medicine; PCP Internal Medicine; Visit Provider Surgery | DX: K81.0 Acute cholecystitis (principal) | CPT/HCPCS: 47562; 99024; 99222; 99232 ==

== ENCOUNTER 2023-06-05 14:46 | Outpatient (AMB) | payer OTHER, SELFPAY ==
--- NOTE | 2023-06-05 14:58 | A.OFFVIS_ITS ---
Intake Vital Signs 06/05/23 15:02 Height 5 ft 6 in Weight 187 lb 6.287 oz BMI 30.2 BP 110/70 Blood Pressure Location Lt brachial Position Sitting Intake Visit Reasons: Cholecystectomy Laparoscopic Intake Note: Patient is seen in office for post op assessment post laparoscopic cholecystectomy. Patient c/o: since surgery has been having a cough, feels low energy, burping , phlegm, incision is looking well per pt Patient Scheduling Coordinator Required: No Accompanied by: Family/Other Allergies No Known Allergies Allergy (Verified 06/05/23 15:01) Medication List - Last Reconciled 06/06/23 by Marquise Emanuel MD ascorbic acid (vitamin C) 500 mg PO DAILY [biotin 1 tab PO DAILY] cholecalciferol (vitamin D3) 25 mcg PO DAILY [chromium 1 tab PO DAILY] coenzyme Q10 (Co Q-10) 400 mg PO DAILY hydrocodone-acetaminophen 5-325 mg 1 tab PO Q4-6H PRN multivitamin 1 tab PO DAILY [Mushroom Complex 1 tab PO DAILY] [[place] 3 1 cap PO DAILY] oxycodone 5 mg PO Q4H PRN psyllium seed (sugar) 1 tbsp PO DAILY vitamin B complex 1 tab PO DAILY HPI HPI Comments History of Present Illness Details 73-year-old male patient with history of gallstone pancreatitis returning 1 week following laparoscopic cholecystectomy. Operative findings were consistent with acute cholecystitis with cholelithiasis. He tolerated the procedure well and his abdominal symptoms are improving. He denies nausea or vomiting but does have some right upper quadrant abdominal discomfort which overall has improved. He reports a family history of pancreatic cancer as well as a personal history of prostate cancer. In addition there is a strong family history of thyroid cancer in both his brother and multiple family members. He denies any previous evaluation with genetic screening or thyroid ultrasounds. [facility] Hx laparoscopic cholecystectomy (05/24/23) H/O inguinal hernia repair Family History Brother Pancreatic cancer Social History Household Members: Spouse Housing: Condominium Do you presently have visiting nurse or other home services: No Alcohol intake: current Alcohol intake frequency: a few times a month Patient Tobacco Use Status: Never used Tobacco service: No Physical Exam Vital Signs: Last Vital Signs BP 110/70 06/05/23 15:02 BMI result Body Mass Index 30.2 Const General: comfortable and no acute distress Nutritional Appearance: well nourished Orientation/consciousness: patient oriented x3 Limitations: no limitations HEENT Head: Yes normocephalic and Yes atraumatic Ears: hearing grossly normal bilaterally Neck Neck: Yes normal visual inspection Resp Effort & Inspection: normal respiratory effort, no audible wheezes, no cough and no respiratory distress GI Other: Trocar incisions are clean, dry, and intact without redness or discharge. Skin General skin exam: no rashes or lesions noted Neuro General: patient oriented x3 Extrem General: Yes no clubbing, cyanosis or edema Assessment & Plan Assessment & Plan (1) Family history of thyroid cancer: Code(s): Z80.8 - Family history of malignant neoplasm of other organs or systems Plan: Will obtain thyroid ultrasound due to strong family history of thyroid cancer. (2) Acute gallstone pancreatitis: Code(s): K85.10 - Biliary acute pancreatitis without necrosis or infection (3) Acute cholecystitis: Code(s): K81.0 - Acute cholecystitis Plan Overall patient is much improved 1 week following laparoscopic cholecystectomy . He should continue to avoid lifting greater than 10 lb for another week. In addition he should avoid fatty / fried foods for approximately 1 month. After review of the risks and benefits of genetic testing, wishes to proceed with this testing. He will return approximately 6 weeks to review the results. In addition a ultrasound of the neck will be obtained to evaluate for any thyroid nodules. This is positive he will need Endocrinology evaluation. Patient expressed understanding and agrees with the plan. Orders: Orders US thyroid 06/05/23 Z80.8 - Family history of malignant neoplasm of other organs or systems Coding Level of Care Code Global (52173) Diagnoses Family history of thyroid cancer Z80.8 Acute gallstone pancreatitis K85.10 Acute cholecystitis K81.0
[2023-06-05 15:02] VITALS: BP 110/70; BMI 30.2
== END 2023-06-05 15:18 | disposition home or self-care (01) ==
PROVIDERS: PCP Internal Medicine; Visit Provider Surgery
DX: Z80.8 Family history of malignant neoplasm of other organs or systems (principal); K85.10 Biliary acute pancreatitis without necrosis or infection; K81.0 Acute cholecystitis
CPT/HCPCS: 99024

== ENCOUNTER → 2023-06-05 14:46 | Outpatient (BNVA) | payer OTHER, SELFPAY | PROVIDERS: PCP Internal Medicine; Visit Provider Surgery ==

== ENCOUNTER → 2023-06-06 11:11 | Outpatient (BNVA) | payer OTHER, SELFPAY | PROVIDERS: PCP Internal Medicine; Visit Provider Surgery | DX: Z13.79 Encounter for other screening for genetic and chromosomal anomalies (principal); Z80.1 Family history of malignant neoplasm of trachea, bronchus and lung; Z80.42 Family history of malignant neoplasm of prostate; Z80.59 Family history of malignant neoplasm of other urinary tract organ; Z80.8 Family history of malignant neoplasm of other organs or systems | CPT/HCPCS: 99211 ==

== ENCOUNTER 2023-06-07 10:08 | Outpatient (REF) | payer OTHER, MEDICARE, SELFPAY ==
--- NOTE | ~2023-06-07 | US_ITS ---
EXAMINATION: US THYROID CLINICAL INFORMATION: Family history of malignant neoplasm of other organs systems. COMPARISON: None available. TECHNIQUE: Linear transducer grayscale and color Doppler examination with attention to the region of the thyroid. FINDINGS: SIZE: Measurements of the thyroid lobes and nodules are given in sagittal, anteroposterior and transverse dimensions respectively. Right Thyroid Lobe: 5.2 x 1.9 x 1.8 cm, volume 8.8 mL. Parenchyma: The gland echotexture is homogeneous. Thyroid vascularity is normal. Left Thyroid Lobe: 4.4 x 1.4 x 2.0 cm, volume 6.5 mL. Parenchyma: The gland echotexture is homogeneous. 2 mm lower pole calcification is seen. Thyroid vascularity is normal. Isthmus: 0.2 cm in maximum AP dimension. Estimated total number of nodules greater than or equal to 1 cm: 0. Medical Receptionist Medical Assistant nodules are described as follows: 1. Location: Left mid. Size: 0.5 x 0.4 x 0.6 cm, volume 0.06 mL. Nodule characteristics: Composition: Cystic(0). ACR TI-RADS total points: 0 ACR TI-RADS category: 1 NODES: No lymphadenopathy is seen in the tissue surrounding the thyroid gland. US/US thyroid IMPRESSION: Nonenlarged homogeneous thyroid with no suspicious thyroid nodules. ACR TI-RADS RECOMMENDATION REFERENCE: Ultrasound-guided fine-needle aspiration, followup ultrasound, no further follow up. * TR1 (0 point) and TR2 (2 points): No FNA or follow up. * TR3 (3 points): FNA if more than or equal to 2.5 cm in maximum dimension, followup ultrasound in 1, 3 and 5 years if 1.5 to 2.4 cm in maximum dimension. * TR4 (4-6 points): FNA if more than or equal to 1.5 cm in maximum dimension, followup ultrasound in 1, 2, 3 and 5 years if 1 to 1.4 cm in maximum dimension. * TR5 (more than or equal to 7 points): FNA if more than or equal to 1 cm in maximum dimension, followup ultrasound every year for 5 years if 0.5 to 0.9 cm in maximum dimension. * TR3, TR4 or TR5 nodules that are below the size threshold for followup receive no follow up.
== END 2023-06-07 10:09 | disposition home or self-care (01) ==
LOC: HO.US 10:08
PROVIDERS: Visit Provider Surgery
DX: Z80.8 Family history of malignant neoplasm of other organs or systems (principal)
CPT/HCPCS: 76536

== ENCOUNTER 2023-07-19 11:09 | Outpatient (AMB) | payer OTHER, SELFPAY ==
--- NOTE | 2023-07-19 11:16 | A.OFFVIS_ITS ---
Intake Vital Signs 07/19/23 11:25 Height 5 ft 6 in Weight 187 lb BMI 30.2 BP 152/70 H Blood Pressure Location Lt brachial Position Sitting Pulse 60 Intake Visit Reasons: Genetic test results *HERE* Intake Note: Patient is seen in office for genetic testing results. Pt c/o: here for results Home Improvement Contractor Required: No Accompanied by: Self / Same As Patient Allergies No Known Allergies Allergy (Verified 07/19/23 11:16) Medication List - Last Reconciled 07/19/23 by Marquise Emanuel MD ascorbic acid (vitamin C) 500 mg PO DAILY [biotin 1 tab PO DAILY] cholecalciferol (vitamin D3) 25 mcg PO DAILY [chromium 1 tab PO DAILY] coenzyme Q10 (Co Q-10) 400 mg PO DAILY hydrocodone-acetaminophen 5-325 mg 1 tab PO Q4-6H PRN multivitamin 1 tab PO DAILY [Mushroom Complex 1 tab PO DAILY] [Cochran 3 1 cap PO DAILY] oxycodone 5 mg PO Q4H PRN psyllium seed (sugar) 1 tbsp PO DAILY vitamin B complex 1 tab PO DAILY HPI HPI Comments History of Present Illness Details Patient returns today to review the genetic testing results. No clinically significant mutations were identified in the test results obtained from 06/06/2023. In addition no variance of uncertain significance were identified. Based on the clinical history provided modified medical management guidelines were identified. This is the result of a family history of colorectal cancer. Recommendations included colonoscopy to be obtained every 10 years. The results of the genetic testing were provided to the patient. He reports his sister is also undergoing genetic testing as well. PFSH Surgical History Hx laparoscopic cholecystectomy (05/24/23) H/O inguinal hernia repair Family History Brother Pancreatic cancer Social History Household Members: Spouse Housing: Condominium Do you presently have visiting nurse or other home services: No Alcohol intake: current Alcohol intake frequency: a few times a month Patient Tobacco Use Status: Never used Tobacco service: No Review of Systems Const All systems reviewed & are unremarkable except as noted in HPI and below Physical Exam Const Other: Exam deferred Assessment & Plan Assessment & Plan (1) Family history of thyroid cancer: Code(s): Z80.8 - Family history of malignant neoplasm of other organs or systems (2) Family history of pancreatic cancer: Code(s): Z80.0 - Family history of malignant neoplasm of digestive organs (3) Family history of colorectal cancer: Code(s): Z80.0 - Family history of malignant neoplasm of digestive organs Plan The genetic testing results were provided to the patient and his questions answered to his apparent satisfaction. He is welcome to call for any new concerns or questions. He should follow up as needed. Coding Level of Care Code Est Pt Level 3 (24608) Diagnoses Family history of thyroid cancer Z80.8 Family history of pancreatic cancer Z80.0 Family history of colorectal cancer Z80.0
[2023-07-19 11:25] VITALS: BP 152/70; PULSE 60; BMI 30.2
== END 2023-07-19 11:29 | disposition home or self-care (01) ==
PROVIDERS: PCP Internal Medicine; Visit Provider Surgery
DX: Z80.0 Family history of malignant neoplasm of digestive organs (principal); Z80.8 Family history of malignant neoplasm of other organs or systems
CPT/HCPCS: 99213

== ENCOUNTER → 2023-07-19 11:09 | Outpatient (BNVA) | payer OTHER, SELFPAY | PROVIDERS: PCP Internal Medicine; Visit Provider Surgery | DX: Z80.8 Family history of malignant neoplasm of other organs or systems (principal) ==